=== PATIENT | female | born 1955 | race Caucasian/White ===

== ENCOUNTER → 2017-10-06 | Outpatient (CLI) | payer BC ==
[~2017-10-06] MED LIST: ASPI81EC PO; CRUTCH USE; OXYACE5T PO; VENL150ER PO; [UNRECOGNIZED DRUG - OTHER]
== END | disposition home or self-care (01) ==
LOC: LAB 17:20 → LAB SHORT 17:20
DX: S91.002D Unspecified open wound, left ankle, subsequent encounter (principal)
CPT/HCPCS: 87070; 87075; 87205

== ENCOUNTER 2017-10-12 00:34 | Day surgery (SDC) | payer BC | END 2017-10-12 22:46 | disposition home or self-care (01) | LOC: WOUND 00:34 | PROC: 0HBLXZX Excision of Left Lower Leg Skin, External Approach, Diagnostic (ICD-10-PCS; principal; 2017-10-12) | DX: S91.002A Unspecified open wound, left ankle, initial encounter (principal); I87.2 Venous insufficiency (chronic) (peripheral); F17.210 Nicotine dependence, cigarettes, uncomplicated; I10 Essential (primary) hypertension; J44.9 Chronic obstructive pulmonary disease, unspecified | CPT/HCPCS: G0463 ==

== ENCOUNTER 2017-10-19 09:19 | Day surgery (SDC) | payer BC | END 2017-10-19 22:57 | disposition home or self-care (01) | LOC: WOUND 09:19 | PROC: 0HBLXZZ Excision of Left Lower Leg Skin, External Approach (ICD-10-PCS; principal; 2017-10-19) | PROC: 2W1RX6Z Compression of Left Lower Leg using Pressure Dressing (ICD-10-PCS; principal; 2017-10-19) | DX: S91.002A Unspecified open wound, left ankle, initial encounter (principal); I87.2 Venous insufficiency (chronic) (peripheral); I10 Essential (primary) hypertension; J44.9 Chronic obstructive pulmonary disease, unspecified; F17.210 Nicotine dependence, cigarettes, uncomplicated; C43.9 Malignant melanoma of skin, unspecified; B95.8 Unspecified staphylococcus as the cause of diseases classified elsewhere ==

== ENCOUNTER 2017-10-22 12:30 | Day surgery (SDC) | payer BC | END 2017-10-22 14:06 | disposition home or self-care (01) | LOC: WOUND 12:30 | PROC: 2W1RX6Z Compression of Left Lower Leg using Pressure Dressing (ICD-10-PCS; principal; 2017-10-22) | DX: S91.002A Unspecified open wound, left ankle, initial encounter (principal); I87.2 Venous insufficiency (chronic) (peripheral); J44.9 Chronic obstructive pulmonary disease, unspecified; F17.210 Nicotine dependence, cigarettes, uncomplicated; I10 Essential (primary) hypertension; C43.9 Malignant melanoma of skin, unspecified; B95.8 Unspecified staphylococcus as the cause of diseases classified elsewhere ==

== ENCOUNTER 2017-10-26 13:56 | Day surgery (SDC) | payer BC | END 2017-10-26 15:23 | disposition home or self-care (01) | LOC: WOUND 13:56 | DX: L97.822 Non-pressure chronic ulcer of other part of left lower leg with fat layer exposed (principal); S91.002A Unspecified open wound, left ankle, initial encounter; I87.2 Venous insufficiency (chronic) (peripheral); J44.9 Chronic obstructive pulmonary disease, unspecified; F17.210 Nicotine dependence, cigarettes, uncomplicated; I10 Essential (primary) hypertension; C43.9 Malignant melanoma of skin, unspecified ==

== ENCOUNTER 2017-11-03 07:54 | Day surgery (SDC) | END 2017-11-03 09:01 | disposition home or self-care (01) ==

== ENCOUNTER 2017-11-05 13:57 | Day surgery (SDC) | payer BC | END 2017-11-05 23:03 | disposition home or self-care (01) | LOC: WOUND 13:57 | PROC: 2W1RX6Z Compression of Left Lower Leg using Pressure Dressing (ICD-10-PCS; principal; 2017-11-05) | PROC: 0HBLXZZ Excision of Left Lower Leg Skin, External Approach (ICD-10-PCS; principal; 2017-11-05) | DX: L97.322 Non-pressure chronic ulcer of left ankle with fat layer exposed (principal); I87.2 Venous insufficiency (chronic) (peripheral); J44.9 Chronic obstructive pulmonary disease, unspecified; F17.210 Nicotine dependence, cigarettes, uncomplicated; I10 Essential (primary) hypertension; C43.9 Malignant melanoma of skin, unspecified | CPT/HCPCS: G0463 ==

== ENCOUNTER 2017-11-11 07:52 | Day surgery (SDC) | payer BC | END 2017-11-11 22:54 | disposition home or self-care (01) | LOC: WOUND 07:52 | PROC: 0HBLXZZ Excision of Left Lower Leg Skin, External Approach (ICD-10-PCS; principal; 2017-11-11) | DX: L97.822 Non-pressure chronic ulcer of other part of left lower leg with fat layer exposed (principal); I87.2 Venous insufficiency (chronic) (peripheral); S91.002A Unspecified open wound, left ankle, initial encounter; J44.9 Chronic obstructive pulmonary disease, unspecified; F17.210 Nicotine dependence, cigarettes, uncomplicated; I10 Essential (primary) hypertension; C43.9 Malignant melanoma of skin, unspecified; B95.8 Unspecified staphylococcus as the cause of diseases classified elsewhere | CPT/HCPCS: G0463 ==

== ENCOUNTER 2017-11-16 10:43 | Day surgery (SDC) | payer BC | END 2017-11-16 11:59 | disposition home or self-care (01) | LOC: WOUND 10:43 | PROC: 0HBLXZZ Excision of Left Lower Leg Skin, External Approach (ICD-10-PCS; principal; 2017-11-16) | DX: L97.822 Non-pressure chronic ulcer of other part of left lower leg with fat layer exposed (principal); I87.2 Venous insufficiency (chronic) (peripheral); J44.9 Chronic obstructive pulmonary disease, unspecified; F17.210 Nicotine dependence, cigarettes, uncomplicated; I10 Essential (primary) hypertension; C43.9 Malignant melanoma of skin, unspecified; B95.8 Unspecified staphylococcus as the cause of diseases classified elsewhere ==

== ENCOUNTER 2017-11-23 13:14 | Day surgery (SDC) | payer BC | END 2017-11-23 23:19 | disposition home or self-care (01) | LOC: WOUND 13:14 | PROC: 2W1RX6Z Compression of Left Lower Leg using Pressure Dressing (ICD-10-PCS; principal; 2017-11-23) | DX: L97.822 Non-pressure chronic ulcer of other part of left lower leg with fat layer exposed (principal); I87.2 Venous insufficiency (chronic) (peripheral); J44.9 Chronic obstructive pulmonary disease, unspecified; F17.210 Nicotine dependence, cigarettes, uncomplicated; I10 Essential (primary) hypertension; C43.9 Malignant melanoma of skin, unspecified; S91.002A Unspecified open wound, left ankle, initial encounter | CPT/HCPCS: G0463 ==

== ENCOUNTER 2017-11-30 07:49 | Day surgery (SDC) | payer BC | END 2017-11-30 09:47 | disposition home or self-care (01) | LOC: WOUND 07:49 | PROC: 0HBLXZZ Excision of Left Lower Leg Skin, External Approach (ICD-10-PCS; principal; 2017-11-30) | DX: S91.002A Unspecified open wound, left ankle, initial encounter (principal); I87.2 Venous insufficiency (chronic) (peripheral); S91.002D Unspecified open wound, left ankle, subsequent encounter; F17.210 Nicotine dependence, cigarettes, uncomplicated; I10 Essential (primary) hypertension; C43.9 Malignant melanoma of skin, unspecified; B95.8 Unspecified staphylococcus as the cause of diseases classified elsewhere ==

== ENCOUNTER 2017-12-07 11:00 | Day surgery (SDC) | payer BC | END 2017-12-07 11:31 | disposition home or self-care (01) | LOC: WOUND 11:00 | PROC: 2W1RX6Z Compression of Left Lower Leg using Pressure Dressing (ICD-10-PCS; principal; 2017-12-07) | DX: S91.002A Unspecified open wound, left ankle, initial encounter (principal); I87.2 Venous insufficiency (chronic) (peripheral); J44.9 Chronic obstructive pulmonary disease, unspecified; F17.210 Nicotine dependence, cigarettes, uncomplicated; I10 Essential (primary) hypertension; C43.9 Malignant melanoma of skin, unspecified ==

== ENCOUNTER 2017-12-14 10:43 | Day surgery (SDC) | payer BC | END 2017-12-14 12:12 | disposition home or self-care (01) | LOC: WOUND 10:43 | DX: T84.629A Infection and inflammatory reaction due to internal fixation device of unspecified bone of leg, initial encounter (principal); S91.002A Unspecified open wound, left ankle, initial encounter; B95.8 Unspecified staphylococcus as the cause of diseases classified elsewhere; I87.2 Venous insufficiency (chronic) (peripheral); R60.0 Localized edema; F17.210 Nicotine dependence, cigarettes, uncomplicated; I10 Essential (primary) hypertension; Z86.718 Personal history of other venous thrombosis and embolism; J44.9 Chronic obstructive pulmonary disease, unspecified; C43.9 Malignant melanoma of skin, unspecified | CPT/HCPCS: G0463 ==

== ENCOUNTER 2017-12-21 16:00 | Day surgery (SDC) | payer BC | END 2017-12-21 17:17 | disposition home or self-care (01) | LOC: WOUND 16:00 | DX: T84.629A Infection and inflammatory reaction due to internal fixation device of unspecified bone of leg, initial encounter (principal); L97.322 Non-pressure chronic ulcer of left ankle with fat layer exposed; B95.8 Unspecified staphylococcus as the cause of diseases classified elsewhere; F17.210 Nicotine dependence, cigarettes, uncomplicated; Z86.718 Personal history of other venous thrombosis and embolism; I87.2 Venous insufficiency (chronic) (peripheral); J44.9 Chronic obstructive pulmonary disease, unspecified | CPT/HCPCS: G0463 ==

== ENCOUNTER → 2018-07-03 | Outpatient (CLI) | payer BC | LOC: LAB EV 14:38 → LAB SHORT 14:38 | DX: S91.002A Unspecified open wound, left ankle, initial encounter (principal) | CPT/HCPCS: 87070; 87077; 87186; 87205 ==

== ENCOUNTER 2018-08-24 00:12 | Day surgery (SDC) | payer BC | END 2018-08-24 22:58 | disposition home or self-care (01) | LOC: WOUND 00:12 | DX: L97.323 Non-pressure chronic ulcer of left ankle with necrosis of muscle (principal); I87.2 Venous insufficiency (chronic) (peripheral); I10 Essential (primary) hypertension; Z72.0 Tobacco use; J44.9 Chronic obstructive pulmonary disease, unspecified; Z87.81 Personal history of (healed) traumatic fracture | CPT/HCPCS: G0463 ==

== ENCOUNTER 2018-08-26 00:32 | Day surgery (SDC) | payer BC | END 2018-08-26 12:00 | disposition home or self-care (01) | LOC: WOUND 00:32 | DX: L97.823 Non-pressure chronic ulcer of other part of left lower leg with necrosis of muscle (principal); I87.2 Venous insufficiency (chronic) (peripheral); I10 Essential (primary) hypertension; J44.9 Chronic obstructive pulmonary disease, unspecified; Z87.81 Personal history of (healed) traumatic fracture; Z86.718 Personal history of other venous thrombosis and embolism; Z72.0 Tobacco use ==

== ENCOUNTER 2018-09-02 00:13 | Day surgery (SDC) | payer BC | END 2018-09-02 23:03 | disposition home or self-care (01) | LOC: WOUND 00:13 | DX: L97.823 Non-pressure chronic ulcer of other part of left lower leg with necrosis of muscle (principal); J44.9 Chronic obstructive pulmonary disease, unspecified; I10 Essential (primary) hypertension; I87.2 Venous insufficiency (chronic) (peripheral); Z86.718 Personal history of other venous thrombosis and embolism; Z87.81 Personal history of (healed) traumatic fracture; Z72.0 Tobacco use | CPT/HCPCS: 87070; 87077; 87147; 87186; 87205 ==

== ENCOUNTER 2018-09-09 01:16 | Day surgery (SDC) | payer BC | END 2018-09-09 22:48 | disposition home or self-care (01) | LOC: WOUND 01:16 | DX: I87.2 Venous insufficiency (chronic) (peripheral) (principal); L97.323 Non-pressure chronic ulcer of left ankle with necrosis of muscle; I73.9 Peripheral vascular disease, unspecified; I10 Essential (primary) hypertension; Z87.81 Personal history of (healed) traumatic fracture; Z86.718 Personal history of other venous thrombosis and embolism; Z72.0 Tobacco use ==

== ENCOUNTER 2018-09-16 14:45 | Day surgery (SDC) | payer OTHER | END 2018-09-16 23:58 | disposition home or self-care (01) | LOC: WOUND 14:45 | DX: L97.823 Non-pressure chronic ulcer of other part of left lower leg with necrosis of muscle (principal) ==

== ENCOUNTER 2018-09-23 12:45 | Day surgery (SDC) | payer OTHER | END 2018-09-23 23:36 | disposition home or self-care (01) | LOC: WOUND 12:45 | DX: L97.323 Non-pressure chronic ulcer of left ankle with necrosis of muscle (principal); I87.2 Venous insufficiency (chronic) (peripheral); I10 Essential (primary) hypertension; J44.9 Chronic obstructive pulmonary disease, unspecified; Z86.718 Personal history of other venous thrombosis and embolism; Z87.81 Personal history of (healed) traumatic fracture; Z72.0 Tobacco use ==

== ENCOUNTER 2018-09-30 14:40 | Day surgery (SDC) | payer OTHER | END 2018-09-30 23:48 | disposition home or self-care (01) | LOC: WOUND 14:40 | DX: I87.2 Venous insufficiency (chronic) (peripheral) (principal); L97.822 Non-pressure chronic ulcer of other part of left lower leg with fat layer exposed; I10 Essential (primary) hypertension; J44.9 Chronic obstructive pulmonary disease, unspecified; Z86.718 Personal history of other venous thrombosis and embolism; Z87.81 Personal history of (healed) traumatic fracture; Z72.0 Tobacco use ==

== ENCOUNTER 2018-10-07 15:00 | Day surgery (SDC) | payer BC | END 2018-10-07 22:48 | disposition home or self-care (01) | LOC: WOUND 15:00 | DX: I87.2 Venous insufficiency (chronic) (peripheral) (principal); L97.822 Non-pressure chronic ulcer of other part of left lower leg with fat layer exposed; L97.323 Non-pressure chronic ulcer of left ankle with necrosis of muscle; I10 Essential (primary) hypertension; J44.9 Chronic obstructive pulmonary disease, unspecified; Z86.718 Personal history of other venous thrombosis and embolism; Z87.81 Personal history of (healed) traumatic fracture; Z72.0 Tobacco use ==

== ENCOUNTER 2018-10-14 00:20 | Day surgery (SDC) | payer BC | END 2018-10-14 23:01 | disposition home or self-care (01) | LOC: WOUND 00:20 | DX: L97.822 Non-pressure chronic ulcer of other part of left lower leg with fat layer exposed (principal); L97.323 Non-pressure chronic ulcer of left ankle with necrosis of muscle; I10 Essential (primary) hypertension; I87.2 Venous insufficiency (chronic) (peripheral); Z86.718 Personal history of other venous thrombosis and embolism; Z87.81 Personal history of (healed) traumatic fracture; Z72.0 Tobacco use; Z88.2 Allergy status to sulfonamides ==

== ENCOUNTER 2018-10-21 00:37 | Day surgery (SDC) | payer BC | END 2018-10-21 22:50 | disposition home or self-care (01) | LOC: WOUND 00:37 | DX: L97.822 Non-pressure chronic ulcer of other part of left lower leg with fat layer exposed (principal); I87.2 Venous insufficiency (chronic) (peripheral); I10 Essential (primary) hypertension; Z86.718 Personal history of other venous thrombosis and embolism; Z87.81 Personal history of (healed) traumatic fracture; Z72.0 Tobacco use | CPT/HCPCS: G0463 ==

== ENCOUNTER 2018-10-28 00:56 | Day surgery (SDC) | payer BC | END 2018-10-28 23:22 | disposition home or self-care (01) | LOC: WOUND 00:56 | DX: L97.822 Non-pressure chronic ulcer of other part of left lower leg with fat layer exposed (principal); L97.323 Non-pressure chronic ulcer of left ankle with necrosis of muscle; I87.2 Venous insufficiency (chronic) (peripheral); I73.9 Peripheral vascular disease, unspecified; I10 Essential (primary) hypertension; J44.9 Chronic obstructive pulmonary disease, unspecified; Z86.718 Personal history of other venous thrombosis and embolism; Z87.81 Personal history of (healed) traumatic fracture; Z72.0 Tobacco use | CPT/HCPCS: G0463 ==

== ENCOUNTER 2018-11-04 00:25 | Day surgery (SDC) | payer BC | END 2018-11-04 23:15 | disposition home or self-care (01) | LOC: WOUND 00:25 | DX: L97.822 Non-pressure chronic ulcer of other part of left lower leg with fat layer exposed (principal); L97.323 Non-pressure chronic ulcer of left ankle with necrosis of muscle; I87.2 Venous insufficiency (chronic) (peripheral); I10 Essential (primary) hypertension; D48.5 Neoplasm of uncertain behavior of skin; I73.9 Peripheral vascular disease, unspecified; Z87.81 Personal history of (healed) traumatic fracture; Z72.0 Tobacco use ==

== ENCOUNTER 2018-11-11 14:50 | Day surgery (SDC) | payer BC | END 2018-11-11 22:43 | disposition home or self-care (01) | LOC: WOUND 14:50 | DX: L97.822 Non-pressure chronic ulcer of other part of left lower leg with fat layer exposed (principal); L97.323 Non-pressure chronic ulcer of left ankle with necrosis of muscle; I87.2 Venous insufficiency (chronic) (peripheral); I10 Essential (primary) hypertension; J44.9 Chronic obstructive pulmonary disease, unspecified; D48.5 Neoplasm of uncertain behavior of skin; Z87.81 Personal history of (healed) traumatic fracture; Z86.718 Personal history of other venous thrombosis and embolism | CPT/HCPCS: G0463 ==

== ENCOUNTER 2018-11-18 14:42 | Day surgery (SDC) | payer BC, OTHER | END 2018-11-18 23:26 | disposition home or self-care (01) | LOC: WOUND 14:42 | DX: L97.822 Non-pressure chronic ulcer of other part of left lower leg with fat layer exposed (principal); I87.2 Venous insufficiency (chronic) (peripheral); I10 Essential (primary) hypertension; Z87.81 Personal history of (healed) traumatic fracture; Z86.718 Personal history of other venous thrombosis and embolism; Z72.0 Tobacco use ==

== ENCOUNTER 2018-11-22 13:25 | Day surgery (SDC) | payer BC, OTHER | END 2018-11-22 23:16 | disposition home or self-care (01) | LOC: WOUND 13:25 | DX: L97.822 Non-pressure chronic ulcer of other part of left lower leg with fat layer exposed (principal); I10 Essential (primary) hypertension; J44.9 Chronic obstructive pulmonary disease, unspecified; I87.2 Venous insufficiency (chronic) (peripheral); D48.5 Neoplasm of uncertain behavior of skin; Z86.718 Personal history of other venous thrombosis and embolism; Z87.81 Personal history of (healed) traumatic fracture; Z72.0 Tobacco use ==

== ENCOUNTER 2018-11-25 14:45 | Day surgery (SDC) | payer BC | END 2018-11-25 22:54 | disposition home or self-care (01) | LOC: WOUND 14:45 | DX: L97.822 Non-pressure chronic ulcer of other part of left lower leg with fat layer exposed (principal); L97.323 Non-pressure chronic ulcer of left ankle with necrosis of muscle; I87.2 Venous insufficiency (chronic) (peripheral); I10 Essential (primary) hypertension; Z87.81 Personal history of (healed) traumatic fracture; Z72.0 Tobacco use; Z86.718 Personal history of other venous thrombosis and embolism | CPT/HCPCS: G0463; J3301 ==

== ENCOUNTER 2018-12-02 14:45 | Day surgery (SDC) | payer BC, OTHER | END 2018-12-02 23:09 | disposition home or self-care (01) | LOC: WOUND 14:45 | DX: L97.822 Non-pressure chronic ulcer of other part of left lower leg with fat layer exposed (principal); I10 Essential (primary) hypertension; J44.9 Chronic obstructive pulmonary disease, unspecified; I87.2 Venous insufficiency (chronic) (peripheral); I73.9 Peripheral vascular disease, unspecified; Z86.718 Personal history of other venous thrombosis and embolism; Z87.81 Personal history of (healed) traumatic fracture; Z72.0 Tobacco use | CPT/HCPCS: G0463 ==

== ENCOUNTER 2018-12-16 14:58 | Day surgery (SDC) | payer BC, OTHER | END 2018-12-16 23:00 | disposition home or self-care (01) | LOC: WOUND 14:58 | PROC: 0HDKXZZ Extraction of Right Lower Leg Skin, External Approach (ICD-10-PCS; principal; 2018-12-16) | DX: L97.811 Non-pressure chronic ulcer of other part of right lower leg limited to breakdown of skin (principal); L97.519 Non-pressure chronic ulcer of other part of right foot with unspecified severity; L97.322 Non-pressure chronic ulcer of left ankle with fat layer exposed; I87.2 Venous insufficiency (chronic) (peripheral); I10 Essential (primary) hypertension; J44.9 Chronic obstructive pulmonary disease, unspecified; F17.200 Nicotine dependence, unspecified, uncomplicated; D48.5 Neoplasm of uncertain behavior of skin; Z87.81 Personal history of (healed) traumatic fracture; Z86.718 Personal history of other venous thrombosis and embolism ==

== ENCOUNTER 2018-12-23 00:27 | Day surgery (SDC) | payer BC, OTHER | END 2018-12-23 22:55 | disposition home or self-care (01) | LOC: WOUND 00:27 | DX: L97.323 Non-pressure chronic ulcer of left ankle with necrosis of muscle (principal); I10 Essential (primary) hypertension; J44.9 Chronic obstructive pulmonary disease, unspecified; I87.2 Venous insufficiency (chronic) (peripheral); I73.9 Peripheral vascular disease, unspecified; Z86.718 Personal history of other venous thrombosis and embolism; Z87.81 Personal history of (healed) traumatic fracture | CPT/HCPCS: G0463 ==

== ENCOUNTER 2018-12-30 00:19 | Day surgery (SDC) | payer BC, OTHER | END 2018-12-30 22:53 | disposition home or self-care (01) | LOC: WOUND 00:19 | DX: L97.323 Non-pressure chronic ulcer of left ankle with necrosis of muscle (principal); I10 Essential (primary) hypertension; J44.9 Chronic obstructive pulmonary disease, unspecified; I73.9 Peripheral vascular disease, unspecified; I87.2 Venous insufficiency (chronic) (peripheral); Z87.81 Personal history of (healed) traumatic fracture; Z72.0 Tobacco use | CPT/HCPCS: G0463 ==

== ENCOUNTER 2019-01-04 07:55 | Day surgery (SDC) | payer BC, OTHER ==
[~2019-01-04] VITALS: Ht 170.2 cm; Wt 84.0 kg
[2019-01-04] MEDS ORDERED: Prinivil10 MG PO (09:27)
[2019-01-04] MEDS ORDERED: VENL150ER PO (09:27)
[2019-01-04] MEDS ORDERED: CALCIUM 600 +1 EA11 PO (09:27)
[2019-01-04] MEDS ORDERED: MAGNESIUM CITR100 MG PO (09:28)
== END 2019-01-04 23:00 | disposition home or self-care (01) ==
LOC: MHTC 07:55
DX: I87.2 Venous insufficiency (chronic) (peripheral) (principal); I83.023 Varicose veins of left lower extremity with ulcer of ankle; L97.329 Non-pressure chronic ulcer of left ankle with unspecified severity
CPT/HCPCS: 36466; 99152; J3010; J7040

== ENCOUNTER 2019-01-13 15:10 | Day surgery (SDC) | payer BC, OTHER ==
[~2019-01-13 15:10] MED LIST changes: +CALCIUM 600 +1 EA11 PO; +MAGNESIUM CITR100 MG PO; +Prinivil10 MG PO
== END 2019-01-13 23:04 | disposition home or self-care (01) ==
LOC: WOUND 15:10
DX: L97.323 Non-pressure chronic ulcer of left ankle with necrosis of muscle (principal); I87.2 Venous insufficiency (chronic) (peripheral); I10 Essential (primary) hypertension; J44.9 Chronic obstructive pulmonary disease, unspecified; Z87.81 Personal history of (healed) traumatic fracture; Z86.718 Personal history of other venous thrombosis and embolism; Z98.890 Other specified postprocedural states
CPT/HCPCS: G0463

== ENCOUNTER 2019-01-20 14:35 | Day surgery (SDC) | payer BC, OTHER | END 2019-01-20 23:28 | disposition home or self-care (01) | LOC: WOUND 14:35 | DX: L97.323 Non-pressure chronic ulcer of left ankle with necrosis of muscle (principal); I87.2 Venous insufficiency (chronic) (peripheral); I10 Essential (primary) hypertension; D48.5 Neoplasm of uncertain behavior of skin; Z87.81 Personal history of (healed) traumatic fracture; Z86.718 Personal history of other venous thrombosis and embolism | CPT/HCPCS: G0463 ==

== ENCOUNTER 2019-01-27 14:51 | Day surgery (SDC) | payer BC, OTHER | END 2019-01-27 23:35 | disposition home or self-care (01) | LOC: WOUND 14:51 | DX: L97.323 Non-pressure chronic ulcer of left ankle with necrosis of muscle (principal); I87.2 Venous insufficiency (chronic) (peripheral); I10 Essential (primary) hypertension; Z87.81 Personal history of (healed) traumatic fracture; Z72.0 Tobacco use | CPT/HCPCS: G0463 ==

== ENCOUNTER 2019-02-10 00:34 | Day surgery (SDC) | payer BC, OTHER | END 2019-02-10 23:30 | disposition home or self-care (01) | LOC: WOUND 00:34 | DX: L97.822 Non-pressure chronic ulcer of other part of left lower leg with fat layer exposed (principal); L97.323 Non-pressure chronic ulcer of left ankle with necrosis of muscle; I87.2 Venous insufficiency (chronic) (peripheral); I10 Essential (primary) hypertension; J44.9 Chronic obstructive pulmonary disease, unspecified; Z87.891 Personal history of nicotine dependence; Z86.718 Personal history of other venous thrombosis and embolism | CPT/HCPCS: 87071; 87075; 87077; 87102; 87186; 87205 ==

== ENCOUNTER 2019-02-17 01:20 | Day surgery (SDC) | payer BC, OTHER | END 2019-02-17 22:46 | disposition home or self-care (01) | LOC: WOUND 01:20 | DX: L97.323 Non-pressure chronic ulcer of left ankle with necrosis of muscle (principal); L97.822 Non-pressure chronic ulcer of other part of left lower leg with fat layer exposed; I73.9 Peripheral vascular disease, unspecified; I87.2 Venous insufficiency (chronic) (peripheral); I10 Essential (primary) hypertension; Z86.718 Personal history of other venous thrombosis and embolism; Z87.81 Personal history of (healed) traumatic fracture; Z72.0 Tobacco use | CPT/HCPCS: G0463 ==

== ENCOUNTER 2019-02-24 00:45 | Day surgery (SDC) | payer BC, OTHER | END 2019-02-24 23:12 | disposition home or self-care (01) | LOC: WOUND 00:45 | DX: L97.323 Non-pressure chronic ulcer of left ankle with necrosis of muscle (principal); L97.822 Non-pressure chronic ulcer of other part of left lower leg with fat layer exposed; I87.2 Venous insufficiency (chronic) (peripheral); I10 Essential (primary) hypertension; Z87.81 Personal history of (healed) traumatic fracture; Z72.0 Tobacco use | CPT/HCPCS: G0463 ==

== ENCOUNTER 2019-03-03 00:14 | Day surgery (SDC) | payer BC, OTHER | END 2019-03-03 23:53 | disposition home or self-care (01) | LOC: WOUND 00:14 | DX: L97.321 Non-pressure chronic ulcer of left ankle limited to breakdown of skin (principal); I87.2 Venous insufficiency (chronic) (peripheral); I10 Essential (primary) hypertension; Z87.81 Personal history of (healed) traumatic fracture; Z72.0 Tobacco use ==

== ENCOUNTER 2019-03-10 00:44 | Day surgery (SDC) | payer BC, OTHER | END 2019-03-10 23:17 | disposition home or self-care (01) | LOC: WOUND 00:44 | DX: L97.321 Non-pressure chronic ulcer of left ankle limited to breakdown of skin (principal); I10 Essential (primary) hypertension; I87.2 Venous insufficiency (chronic) (peripheral); Z87.81 Personal history of (healed) traumatic fracture; Z72.0 Tobacco use ==

== ENCOUNTER 2019-03-14 08:02 | Day surgery (SDC) | payer BC, OTHER | END 2019-03-14 22:54 | disposition home or self-care (01) | LOC: WOUND 08:02 | DX: L97.323 Non-pressure chronic ulcer of left ankle with necrosis of muscle (principal); I10 Essential (primary) hypertension; I87.2 Venous insufficiency (chronic) (peripheral); Z87.81 Personal history of (healed) traumatic fracture; Z72.0 Tobacco use ==

== ENCOUNTER 2019-03-17 13:04 | Day surgery (SDC) | payer BC, OTHER | END 2019-03-17 22:57 | disposition home or self-care (01) | LOC: WOUND 13:04 | DX: L97.323 Non-pressure chronic ulcer of left ankle with necrosis of muscle (principal); I10 Essential (primary) hypertension; I87.2 Venous insufficiency (chronic) (peripheral); Z87.81 Personal history of (healed) traumatic fracture; Z72.0 Tobacco use | CPT/HCPCS: 87070; 87075; 87077; 87147; 87186; 87205; G0463 ==

== ENCOUNTER 2019-03-24 00:37 | Day surgery (SDC) | payer BC, OTHER | END 2019-03-24 23:39 | disposition home or self-care (01) | LOC: WOUND 00:37 | DX: I87.2 Venous insufficiency (chronic) (peripheral) (principal); L97.323 Non-pressure chronic ulcer of left ankle with necrosis of muscle; J44.9 Chronic obstructive pulmonary disease, unspecified; I10 Essential (primary) hypertension; F17.200 Nicotine dependence, unspecified, uncomplicated; Z87.81 Personal history of (healed) traumatic fracture ==

== ENCOUNTER 2019-04-04 00:33 | Day surgery (SDC) | payer BC, OTHER | END 2019-04-04 22:49 | disposition home or self-care (01) | LOC: WOUND 00:33 | DX: L97.323 Non-pressure chronic ulcer of left ankle with necrosis of muscle (principal); I10 Essential (primary) hypertension; I87.2 Venous insufficiency (chronic) (peripheral); F17.200 Nicotine dependence, unspecified, uncomplicated; J44.9 Chronic obstructive pulmonary disease, unspecified; Z87.81 Personal history of (healed) traumatic fracture; Z79.82 Long term (current) use of aspirin; Z79.899 Other long term (current) drug therapy ==

== ENCOUNTER 2019-04-14 12:59 | Day surgery (SDC) | payer BC, OTHER | END 2019-04-14 23:17 | disposition home or self-care (01) | LOC: WOUND 12:59 | DX: L97.823 Non-pressure chronic ulcer of other part of left lower leg with necrosis of muscle (principal); I87.2 Venous insufficiency (chronic) (peripheral); J44.9 Chronic obstructive pulmonary disease, unspecified; I10 Essential (primary) hypertension; Z88.1 Allergy status to other antibiotic agents; Z88.2 Allergy status to sulfonamides; Z79.82 Long term (current) use of aspirin; Z79.899 Other long term (current) drug therapy; Z86.718 Personal history of other venous thrombosis and embolism ==

== ENCOUNTER 2019-04-28 12:59 | Day surgery (SDC) | payer BC, OTHER | END 2019-04-28 23:19 | disposition home or self-care (01) | LOC: WOUND 12:59 | DX: L97.823 Non-pressure chronic ulcer of other part of left lower leg with necrosis of muscle (principal); I73.9 Peripheral vascular disease, unspecified; I87.2 Venous insufficiency (chronic) (peripheral); J44.9 Chronic obstructive pulmonary disease, unspecified; I10 Essential (primary) hypertension; Z88.1 Allergy status to other antibiotic agents; Z88.2 Allergy status to sulfonamides; Z79.82 Long term (current) use of aspirin; Z79.899 Other long term (current) drug therapy ==

== ENCOUNTER 2019-05-12 13:01 | Day surgery (SDC) | payer BC, OTHER | END 2019-05-12 23:10 | disposition home or self-care (01) | LOC: WOUND 13:01 | DX: L97.323 Non-pressure chronic ulcer of left ankle with necrosis of muscle (principal); I87.2 Venous insufficiency (chronic) (peripheral); F17.200 Nicotine dependence, unspecified, uncomplicated; I10 Essential (primary) hypertension; Z87.81 Personal history of (healed) traumatic fracture; J44.9 Chronic obstructive pulmonary disease, unspecified; Z79.82 Long term (current) use of aspirin; Z79.899 Other long term (current) drug therapy ==

== ENCOUNTER 2019-05-16 08:45 | Day surgery (SDC) | payer BC, OTHER | END 2019-05-16 22:45 | disposition home or self-care (01) | LOC: WOUND 08:45 | DX: L97.323 Non-pressure chronic ulcer of left ankle with necrosis of muscle (principal); I87.2 Venous insufficiency (chronic) (peripheral); I10 Essential (primary) hypertension; J44.9 Chronic obstructive pulmonary disease, unspecified; Z86.718 Personal history of other venous thrombosis and embolism; Z79.82 Long term (current) use of aspirin; Z79.899 Other long term (current) drug therapy; Z88.1 Allergy status to other antibiotic agents; Z88.2 Allergy status to sulfonamides ==

== ENCOUNTER 2019-05-18 08:17 | Day surgery (SDC) | payer BC, OTHER | END 2019-05-18 23:59 | disposition home or self-care (01) | LOC: WOUND 08:17 | DX: L97.323 Non-pressure chronic ulcer of left ankle with necrosis of muscle (principal); J44.9 Chronic obstructive pulmonary disease, unspecified; I10 Essential (primary) hypertension; I87.2 Venous insufficiency (chronic) (peripheral); F17.200 Nicotine dependence, unspecified, uncomplicated; Z87.81 Personal history of (healed) traumatic fracture; Z79.82 Long term (current) use of aspirin; Z79.899 Other long term (current) drug therapy ==

== ENCOUNTER 2019-05-20 14:47 | Day surgery (SDC) | payer BC, OTHER | END 2019-05-21 22:48 | disposition home or self-care (01) | LOC: WOUND 14:47 | DX: I96 Gangrene, not elsewhere classified (principal); L97.323 Non-pressure chronic ulcer of left ankle with necrosis of muscle; I87.2 Venous insufficiency (chronic) (peripheral); J44.9 Chronic obstructive pulmonary disease, unspecified; I10 Essential (primary) hypertension; Z86.718 Personal history of other venous thrombosis and embolism; Z87.81 Personal history of (healed) traumatic fracture; Z79.82 Long term (current) use of aspirin; Z79.899 Other long term (current) drug therapy; Z88.1 Allergy status to other antibiotic agents; Z88.2 Allergy status to sulfonamides ==

== ENCOUNTER 2019-05-23 08:37 | Day surgery (SDC) | payer BC, OTHER | END 2019-05-23 22:49 | disposition home or self-care (01) | LOC: WOUND 08:37 | DX: L97.323 Non-pressure chronic ulcer of left ankle with necrosis of muscle (principal); I87.2 Venous insufficiency (chronic) (peripheral); J44.9 Chronic obstructive pulmonary disease, unspecified; I10 Essential (primary) hypertension; Z86.718 Personal history of other venous thrombosis and embolism; Z87.81 Personal history of (healed) traumatic fracture; Z79.82 Long term (current) use of aspirin; Z79.899 Other long term (current) drug therapy; Z88.1 Allergy status to other antibiotic agents; Z88.2 Allergy status to sulfonamides ==

== ENCOUNTER 2019-05-25 08:03 | Day surgery (SDC) | payer BC, OTHER | END 2019-05-25 22:50 | disposition home or self-care (01) | LOC: WOUND 08:03 | DX: L97.323 Non-pressure chronic ulcer of left ankle with necrosis of muscle (principal); I10 Essential (primary) hypertension; I87.2 Venous insufficiency (chronic) (peripheral); F17.200 Nicotine dependence, unspecified, uncomplicated; J44.9 Chronic obstructive pulmonary disease, unspecified; Z87.81 Personal history of (healed) traumatic fracture; Z79.82 Long term (current) use of aspirin; Z79.899 Other long term (current) drug therapy ==

== ENCOUNTER 2019-05-27 11:00 | Day surgery (SDC) | payer BC, OTHER | END 2019-05-27 23:53 | disposition home or self-care (01) | LOC: WOUND 11:00 | DX: L97.323 Non-pressure chronic ulcer of left ankle with necrosis of muscle (principal); I87.2 Venous insufficiency (chronic) (peripheral); I10 Essential (primary) hypertension; J44.9 Chronic obstructive pulmonary disease, unspecified; F17.200 Nicotine dependence, unspecified, uncomplicated; Z87.81 Personal history of (healed) traumatic fracture; Z79.82 Long term (current) use of aspirin; Z79.899 Other long term (current) drug therapy ==

== ENCOUNTER 2019-05-30 15:02 | Day surgery (SDC) | payer BC, OTHER | END 2019-05-30 22:57 | disposition home or self-care (01) | LOC: WOUND 15:02 | DX: L97.323 Non-pressure chronic ulcer of left ankle with necrosis of muscle (principal); I87.2 Venous insufficiency (chronic) (peripheral); F17.200 Nicotine dependence, unspecified, uncomplicated; I10 Essential (primary) hypertension; J44.9 Chronic obstructive pulmonary disease, unspecified; Z87.81 Personal history of (healed) traumatic fracture; Z79.899 Other long term (current) drug therapy; Z79.82 Long term (current) use of aspirin ==

== ENCOUNTER 2019-05-31 11:50 | Day surgery (SDC) | payer BC, OTHER | END 2019-05-31 12:50 | disposition home or self-care (01) | LOC: WOUND 11:50 | DX: L97.323 Non-pressure chronic ulcer of left ankle with necrosis of muscle (principal); I87.2 Venous insufficiency (chronic) (peripheral); F17.200 Nicotine dependence, unspecified, uncomplicated; I10 Essential (primary) hypertension; J44.9 Chronic obstructive pulmonary disease, unspecified; Z87.81 Personal history of (healed) traumatic fracture; Z79.82 Long term (current) use of aspirin; Z79.899 Other long term (current) drug therapy ==

== ENCOUNTER 2019-06-03 14:52 | Day surgery (SDC) | payer BC, OTHER | END 2019-06-03 23:02 | disposition home or self-care (01) | LOC: WOUND 14:52 | DX: L97.323 Non-pressure chronic ulcer of left ankle with necrosis of muscle (principal); I87.2 Venous insufficiency (chronic) (peripheral); J44.9 Chronic obstructive pulmonary disease, unspecified; I10 Essential (primary) hypertension; Z87.81 Personal history of (healed) traumatic fracture; Z79.82 Long term (current) use of aspirin; Z79.899 Other long term (current) drug therapy; Z88.1 Allergy status to other antibiotic agents; Z88.2 Allergy status to sulfonamides ==

== ENCOUNTER 2019-06-10 01:54 | Day surgery (SDC) | payer BC, OTHER | END 2019-06-10 23:31 | disposition home or self-care (01) | LOC: WOUND 01:54 | DX: L97.323 Non-pressure chronic ulcer of left ankle with necrosis of muscle (principal); I87.2 Venous insufficiency (chronic) (peripheral); I73.9 Peripheral vascular disease, unspecified; J44.9 Chronic obstructive pulmonary disease, unspecified; I10 Essential (primary) hypertension; Z87.81 Personal history of (healed) traumatic fracture; Z79.82 Long term (current) use of aspirin; Z79.899 Other long term (current) drug therapy; Z86.718 Personal history of other venous thrombosis and embolism; Z88.1 Allergy status to other antibiotic agents; Z88.2 Allergy status to sulfonamides ==

== ENCOUNTER 2019-06-13 14:56 | Day surgery (SDC) | payer BC, OTHER | END 2019-06-13 22:43 | disposition home or self-care (01) | LOC: WOUND 14:56 | DX: L97.323 Non-pressure chronic ulcer of left ankle with necrosis of muscle (principal); I87.2 Venous insufficiency (chronic) (peripheral); I73.9 Peripheral vascular disease, unspecified; J44.9 Chronic obstructive pulmonary disease, unspecified; I10 Essential (primary) hypertension; Z87.81 Personal history of (healed) traumatic fracture; Z79.82 Long term (current) use of aspirin; Z79.899 Other long term (current) drug therapy; Z86.718 Personal history of other venous thrombosis and embolism; Z88.1 Allergy status to other antibiotic agents; Z88.2 Allergy status to sulfonamides ==

== ENCOUNTER 2019-06-15 10:20 | Day surgery (SDC) | payer BC, OTHER | END 2019-06-15 22:48 | disposition home or self-care (01) | LOC: WOUND 10:20 | DX: I96 Gangrene, not elsewhere classified (principal); L97.822 Non-pressure chronic ulcer of other part of left lower leg with fat layer exposed; I87.2 Venous insufficiency (chronic) (peripheral); I10 Essential (primary) hypertension; J44.9 Chronic obstructive pulmonary disease, unspecified; Z86.718 Personal history of other venous thrombosis and embolism; Z88.2 Allergy status to sulfonamides; Z88.1 Allergy status to other antibiotic agents; Z79.82 Long term (current) use of aspirin; Z79.899 Other long term (current) drug therapy ==

== ENCOUNTER 2019-06-17 14:54 | Day surgery (SDC) | payer BC, OTHER | END 2019-06-17 23:27 | disposition home or self-care (01) | LOC: WOUND 14:54 | DX: I96 Gangrene, not elsewhere classified (principal); L97.822 Non-pressure chronic ulcer of other part of left lower leg with fat layer exposed; I87.2 Venous insufficiency (chronic) (peripheral); I10 Essential (primary) hypertension; J44.9 Chronic obstructive pulmonary disease, unspecified; Z86.718 Personal history of other venous thrombosis and embolism; Z88.2 Allergy status to sulfonamides; Z88.1 Allergy status to other antibiotic agents; Z79.82 Long term (current) use of aspirin; Z79.899 Other long term (current) drug therapy; Z87.81 Personal history of (healed) traumatic fracture ==

== ENCOUNTER 2019-06-20 00:21 | Day surgery (SDC) | payer BC, OTHER | END 2019-06-20 22:43 | disposition home or self-care (01) | LOC: WOUND 00:21 | DX: I96 Gangrene, not elsewhere classified (principal); L97.822 Non-pressure chronic ulcer of other part of left lower leg with fat layer exposed; I87.2 Venous insufficiency (chronic) (peripheral); I10 Essential (primary) hypertension; J44.9 Chronic obstructive pulmonary disease, unspecified; Z86.718 Personal history of other venous thrombosis and embolism; Z88.2 Allergy status to sulfonamides; Z88.1 Allergy status to other antibiotic agents; Z79.82 Long term (current) use of aspirin; Z79.899 Other long term (current) drug therapy; Z87.81 Personal history of (healed) traumatic fracture ==

== ENCOUNTER 2019-06-22 00:37 | Day surgery (SDC) | payer BC, OTHER | END 2019-06-22 22:48 | disposition home or self-care (01) | LOC: WOUND 00:37 | DX: L97.323 Non-pressure chronic ulcer of left ankle with necrosis of muscle (principal); I87.2 Venous insufficiency (chronic) (peripheral); F17.200 Nicotine dependence, unspecified, uncomplicated; I10 Essential (primary) hypertension; J44.9 Chronic obstructive pulmonary disease, unspecified; Z87.81 Personal history of (healed) traumatic fracture; Z79.82 Long term (current) use of aspirin; Z79.899 Other long term (current) drug therapy ==

== ENCOUNTER 2019-06-24 01:05 | Day surgery (SDC) | payer BC, OTHER | END 2019-06-24 23:08 | disposition home or self-care (01) | LOC: WOUND 01:05 | DX: L97.323 Non-pressure chronic ulcer of left ankle with necrosis of muscle (principal); I87.2 Venous insufficiency (chronic) (peripheral); Z87.81 Personal history of (healed) traumatic fracture; F17.200 Nicotine dependence, unspecified, uncomplicated; I10 Essential (primary) hypertension; J44.9 Chronic obstructive pulmonary disease, unspecified ==

== ENCOUNTER 2019-06-29 00:30 | Day surgery (SDC) | payer BC, OTHER | END 2019-06-29 22:36 | disposition home or self-care (01) | LOC: WOUND 00:30 | DX: L97.323 Non-pressure chronic ulcer of left ankle with necrosis of muscle (principal); I87.2 Venous insufficiency (chronic) (peripheral); I10 Essential (primary) hypertension; F17.200 Nicotine dependence, unspecified, uncomplicated; J44.9 Chronic obstructive pulmonary disease, unspecified; Z87.81 Personal history of (healed) traumatic fracture; Z79.82 Long term (current) use of aspirin; Z79.899 Other long term (current) drug therapy ==

== ENCOUNTER → 2019-06-29 | Outpatient (CLI) | payer BC, OTHER | END | disposition home or self-care (01) | LOC: LAB 17:45 → LAB SHORT 17:45 | DX: N39.0 Urinary tract infection, site not specified (principal) | CPT/HCPCS: 87086 ==

== ENCOUNTER 2019-07-01 00:53 | Day surgery (SDC) | payer BC, OTHER | END 2019-07-01 23:05 | disposition home or self-care (01) | LOC: WOUND 00:53 | DX: L97.323 Non-pressure chronic ulcer of left ankle with necrosis of muscle (principal); J44.9 Chronic obstructive pulmonary disease, unspecified; I87.2 Venous insufficiency (chronic) (peripheral); F17.200 Nicotine dependence, unspecified, uncomplicated; I10 Essential (primary) hypertension; Z79.82 Long term (current) use of aspirin; Z87.81 Personal history of (healed) traumatic fracture; Z79.899 Other long term (current) drug therapy ==

== ENCOUNTER 2019-07-04 00:22 | Day surgery (SDC) | payer BC, OTHER | END 2019-07-04 23:12 | disposition home or self-care (01) | LOC: WOUND 00:22 | DX: L97.323 Non-pressure chronic ulcer of left ankle with necrosis of muscle (principal); I87.2 Venous insufficiency (chronic) (peripheral); F17.200 Nicotine dependence, unspecified, uncomplicated; I10 Essential (primary) hypertension; J44.9 Chronic obstructive pulmonary disease, unspecified; Z87.81 Personal history of (healed) traumatic fracture; Z79.82 Long term (current) use of aspirin; Z79.899 Other long term (current) drug therapy ==

== ENCOUNTER 2019-07-06 00:18 | Day surgery (SDC) | payer BC, OTHER | END 2019-07-06 23:14 | disposition home or self-care (01) | LOC: WOUND 00:18 | DX: L97.323 Non-pressure chronic ulcer of left ankle with necrosis of muscle (principal); F17.200 Nicotine dependence, unspecified, uncomplicated; I10 Essential (primary) hypertension; J44.9 Chronic obstructive pulmonary disease, unspecified; I87.2 Venous insufficiency (chronic) (peripheral); Z87.81 Personal history of (healed) traumatic fracture; Z79.82 Long term (current) use of aspirin; Z79.899 Other long term (current) drug therapy ==

== ENCOUNTER 2019-07-08 01:13 | Day surgery (SDC) | payer BC, OTHER | END 2019-07-08 23:22 | disposition home or self-care (01) | LOC: WOUND 01:13 | DX: L97.323 Non-pressure chronic ulcer of left ankle with necrosis of muscle (principal); J44.9 Chronic obstructive pulmonary disease, unspecified; I87.2 Venous insufficiency (chronic) (peripheral); F17.200 Nicotine dependence, unspecified, uncomplicated; I10 Essential (primary) hypertension; Z87.81 Personal history of (healed) traumatic fracture; Z79.899 Other long term (current) drug therapy; Z79.82 Long term (current) use of aspirin ==

== ENCOUNTER 2019-07-11 00:08 | Day surgery (SDC) | payer BC, OTHER | END 2019-07-11 22:46 | disposition home or self-care (01) | LOC: WOUND 00:08 | DX: L97.323 Non-pressure chronic ulcer of left ankle with necrosis of muscle (principal); I87.2 Venous insufficiency (chronic) (peripheral); J44.9 Chronic obstructive pulmonary disease, unspecified; F17.200 Nicotine dependence, unspecified, uncomplicated; I10 Essential (primary) hypertension; Z87.81 Personal history of (healed) traumatic fracture; Z79.82 Long term (current) use of aspirin; Z79.899 Other long term (current) drug therapy ==

== ENCOUNTER 2019-07-13 00:18 | Day surgery (SDC) | payer BC, OTHER | END 2019-07-13 23:11 | disposition home or self-care (01) | LOC: WOUND 00:18 | DX: L97.323 Non-pressure chronic ulcer of left ankle with necrosis of muscle (principal); I87.2 Venous insufficiency (chronic) (peripheral); I10 Essential (primary) hypertension; J44.9 Chronic obstructive pulmonary disease, unspecified; F17.200 Nicotine dependence, unspecified, uncomplicated; Z79.82 Long term (current) use of aspirin; Z87.81 Personal history of (healed) traumatic fracture; Z79.899 Other long term (current) drug therapy ==

== ENCOUNTER 2019-07-15 02:28 | Day surgery (SDC) | payer BC, OTHER | END 2019-07-15 23:52 | disposition home or self-care (01) | LOC: WOUND 02:28 | DX: L97.323 Non-pressure chronic ulcer of left ankle with necrosis of muscle (principal); I87.2 Venous insufficiency (chronic) (peripheral); F17.200 Nicotine dependence, unspecified, uncomplicated; I10 Essential (primary) hypertension; J44.9 Chronic obstructive pulmonary disease, unspecified; Z87.81 Personal history of (healed) traumatic fracture; Z79.82 Long term (current) use of aspirin; Z79.899 Other long term (current) drug therapy ==

== ENCOUNTER 2019-07-18 00:21 | Day surgery (SDC) | payer BC, OTHER | END 2019-07-18 23:17 | disposition home or self-care (01) | LOC: WOUND 00:21 | DX: L97.323 Non-pressure chronic ulcer of left ankle with necrosis of muscle (principal); J44.9 Chronic obstructive pulmonary disease, unspecified; I87.2 Venous insufficiency (chronic) (peripheral); F17.200 Nicotine dependence, unspecified, uncomplicated; I10 Essential (primary) hypertension; Z87.81 Personal history of (healed) traumatic fracture; Z79.82 Long term (current) use of aspirin; Z79.899 Other long term (current) drug therapy ==

== ENCOUNTER 2019-07-20 00:18 | Day surgery (SDC) | payer BC, OTHER | END 2019-07-20 22:57 | disposition home or self-care (01) | LOC: WOUND 00:18 | DX: L97.323 Non-pressure chronic ulcer of left ankle with necrosis of muscle (principal); I87.2 Venous insufficiency (chronic) (peripheral); I10 Essential (primary) hypertension; J44.9 Chronic obstructive pulmonary disease, unspecified; F17.210 Nicotine dependence, cigarettes, uncomplicated; Z87.81 Personal history of (healed) traumatic fracture; Z79.82 Long term (current) use of aspirin; Z79.899 Other long term (current) drug therapy | CPT/HCPCS: Q4133 ==

== ENCOUNTER → 2019-07-25 | Day surgery (SDC) | payer BC, OTHER | LOC: WOUND | DX: L97.323 Non-pressure chronic ulcer of left ankle with necrosis of muscle (principal); I87.2 Venous insufficiency (chronic) (peripheral); F17.200 Nicotine dependence, unspecified, uncomplicated; I10 Essential (primary) hypertension; J44.9 Chronic obstructive pulmonary disease, unspecified; Z87.81 Personal history of (healed) traumatic fracture; Z79.82 Long term (current) use of aspirin; Z79.899 Other long term (current) drug therapy ==

== ENCOUNTER → 2019-07-27 | Day surgery (SDC) | payer BC, OTHER | LOC: WOUND 00:13 | DX: L97.323 Non-pressure chronic ulcer of left ankle with necrosis of muscle (principal); I87.2 Venous insufficiency (chronic) (peripheral); I10 Essential (primary) hypertension; J44.9 Chronic obstructive pulmonary disease, unspecified; Z87.81 Personal history of (healed) traumatic fracture; Z98.890 Other specified postprocedural states | CPT/HCPCS: Q4196 ==

== ENCOUNTER 2019-08-03 00:34 | Day surgery (SDC) | payer BC, OTHER | END 2019-08-03 22:54 | disposition home or self-care (01) | LOC: WOUND 00:34 | DX: L97.323 Non-pressure chronic ulcer of left ankle with necrosis of muscle (principal); I87.2 Venous insufficiency (chronic) (peripheral); F17.200 Nicotine dependence, unspecified, uncomplicated; J44.9 Chronic obstructive pulmonary disease, unspecified; I10 Essential (primary) hypertension; Z87.81 Personal history of (healed) traumatic fracture; Z79.899 Other long term (current) drug therapy; Z79.82 Long term (current) use of aspirin | CPT/HCPCS: Q4133 ==

== ENCOUNTER 2019-08-10 03:15 | Day surgery (SDC) | payer BC, OTHER | END 2019-08-10 22:56 | disposition home or self-care (01) | LOC: WOUND 03:15 | DX: L97.323 Non-pressure chronic ulcer of left ankle with necrosis of muscle (principal); I87.2 Venous insufficiency (chronic) (peripheral); I10 Essential (primary) hypertension; J44.9 Chronic obstructive pulmonary disease, unspecified; F17.200 Nicotine dependence, unspecified, uncomplicated; Z87.81 Personal history of (healed) traumatic fracture; Z79.82 Long term (current) use of aspirin; Z79.899 Other long term (current) drug therapy | CPT/HCPCS: Q4133 ==

== ENCOUNTER 2019-08-17 | Day surgery (SDC) | payer BC, OTHER | END 2019-09-05 22:41 | disposition home or self-care (01) | LOC: WOUND | DX: L97.323 Non-pressure chronic ulcer of left ankle with necrosis of muscle (principal); I87.2 Venous insufficiency (chronic) (peripheral); F17.200 Nicotine dependence, unspecified, uncomplicated; I10 Essential (primary) hypertension; J44.9 Chronic obstructive pulmonary disease, unspecified; Z87.81 Personal history of (healed) traumatic fracture; Z79.899 Other long term (current) drug therapy | CPT/HCPCS: Q4133 ==

== ENCOUNTER 2019-08-24 00:35 | Day surgery (SDC) | payer BC, OTHER | END 2019-08-24 23:15 | disposition home or self-care (01) | LOC: WOUND 00:35 | DX: L97.822 Non-pressure chronic ulcer of other part of left lower leg with fat layer exposed (principal); I87.2 Venous insufficiency (chronic) (peripheral); I10 Essential (primary) hypertension; J44.9 Chronic obstructive pulmonary disease, unspecified; Z86.718 Personal history of other venous thrombosis and embolism; Z87.891 Personal history of nicotine dependence; Z87.81 Personal history of (healed) traumatic fracture ==

== ENCOUNTER 2019-08-31 00:24 | Day surgery (SDC) | payer BC, OTHER | END 2019-08-31 22:46 | disposition home or self-care (01) | LOC: WOUND 00:24 | DX: L97.323 Non-pressure chronic ulcer of left ankle with necrosis of muscle (principal); I87.2 Venous insufficiency (chronic) (peripheral); I10 Essential (primary) hypertension; F17.200 Nicotine dependence, unspecified, uncomplicated; Z87.81 Personal history of (healed) traumatic fracture; Z79.82 Long term (current) use of aspirin; Z79.899 Other long term (current) drug therapy ==

== ENCOUNTER 2019-09-08 00:12 | Day surgery (SDC) | payer BC, OTHER | END 2019-09-08 23:53 | disposition home or self-care (01) | LOC: WOUND 00:12 | DX: L97.323 Non-pressure chronic ulcer of left ankle with necrosis of muscle (principal); I87.2 Venous insufficiency (chronic) (peripheral); I10 Essential (primary) hypertension; J44.9 Chronic obstructive pulmonary disease, unspecified; F17.210 Nicotine dependence, cigarettes, uncomplicated; Z79.82 Long term (current) use of aspirin; Z79.899 Other long term (current) drug therapy; Z86.718 Personal history of other venous thrombosis and embolism; Z87.81 Personal history of (healed) traumatic fracture ==

== ENCOUNTER 2019-09-22 00:06 | Day surgery (SDC) | payer BC, OTHER | END 2019-09-22 22:54 | disposition home or self-care (01) | LOC: WOUND 00:06 | DX: L97.323 Non-pressure chronic ulcer of left ankle with necrosis of muscle (principal); I87.2 Venous insufficiency (chronic) (peripheral); F17.200 Nicotine dependence, unspecified, uncomplicated; I10 Essential (primary) hypertension; Z87.81 Personal history of (healed) traumatic fracture; J44.9 Chronic obstructive pulmonary disease, unspecified; Z79.82 Long term (current) use of aspirin; Z79.899 Other long term (current) drug therapy ==

== ENCOUNTER 2019-09-29 00:14 | Day surgery (SDC) | payer BC, OTHER | END 2019-09-29 22:49 | disposition home or self-care (01) | LOC: WOUND 00:14 | DX: L97.323 Non-pressure chronic ulcer of left ankle with necrosis of muscle (principal); I87.2 Venous insufficiency (chronic) (peripheral); F17.200 Nicotine dependence, unspecified, uncomplicated; I10 Essential (primary) hypertension; J44.9 Chronic obstructive pulmonary disease, unspecified; Z79.82 Long term (current) use of aspirin; Z79.899 Other long term (current) drug therapy; Z87.81 Personal history of (healed) traumatic fracture ==

== ENCOUNTER 2019-10-06 00:07 | Day surgery (SDC) | payer BC, OTHER | END 2019-10-06 22:45 | disposition home or self-care (01) | LOC: WOUND 00:07 | DX: L97.323 Non-pressure chronic ulcer of left ankle with necrosis of muscle (principal); I87.2 Venous insufficiency (chronic) (peripheral); Z87.81 Personal history of (healed) traumatic fracture; I10 Essential (primary) hypertension; J44.9 Chronic obstructive pulmonary disease, unspecified; Z79.82 Long term (current) use of aspirin; Z79.899 Other long term (current) drug therapy ==

== ENCOUNTER 2019-10-20 00:19 | Day surgery (SDC) | payer OTHER | END 2019-10-20 23:52 | disposition home or self-care (01) | LOC: WOUND 00:19 | DX: L97.323 Non-pressure chronic ulcer of left ankle with necrosis of muscle (principal); I87.2 Venous insufficiency (chronic) (peripheral); F17.200 Nicotine dependence, unspecified, uncomplicated; I10 Essential (primary) hypertension; J44.9 Chronic obstructive pulmonary disease, unspecified; Z87.81 Personal history of (healed) traumatic fracture; Z79.82 Long term (current) use of aspirin; Z79.899 Other long term (current) drug therapy | CPT/HCPCS: Q4133 ==

== ENCOUNTER 2019-10-27 00:18 | Day surgery (SDC) | payer OTHER | END 2019-10-27 23:24 | disposition home or self-care (01) | LOC: WOUND 00:18 | DX: L97.323 Non-pressure chronic ulcer of left ankle with necrosis of muscle (principal); I87.2 Venous insufficiency (chronic) (peripheral); F17.200 Nicotine dependence, unspecified, uncomplicated; I10 Essential (primary) hypertension; J44.9 Chronic obstructive pulmonary disease, unspecified; Z79.82 Long term (current) use of aspirin | CPT/HCPCS: Q4133 ==

== ENCOUNTER 2019-11-02 08:13 | Day surgery (SDC) | payer OTHER | END 2019-11-02 22:56 | disposition home or self-care (01) | LOC: WOUND 08:13 | DX: L97.323 Non-pressure chronic ulcer of left ankle with necrosis of muscle (principal); I87.2 Venous insufficiency (chronic) (peripheral); I10 Essential (primary) hypertension; Z72.0 Tobacco use; J44.9 Chronic obstructive pulmonary disease, unspecified; Z86.718 Personal history of other venous thrombosis and embolism; Z87.81 Personal history of (healed) traumatic fracture ==

== ENCOUNTER 2019-11-10 00:23 | Day surgery (SDC) | payer OTHER | END 2019-11-10 23:21 | disposition home or self-care (01) | LOC: WOUND 00:23 | DX: L97.323 Non-pressure chronic ulcer of left ankle with necrosis of muscle (principal); I87.2 Venous insufficiency (chronic) (peripheral); F17.200 Nicotine dependence, unspecified, uncomplicated; I10 Essential (primary) hypertension; J44.9 Chronic obstructive pulmonary disease, unspecified; Z87.81 Personal history of (healed) traumatic fracture; Z79.82 Long term (current) use of aspirin; Z79.899 Other long term (current) drug therapy ==

== ENCOUNTER 2019-11-14 00:42 | Day surgery (SDC) | payer OTHER | END 2019-11-14 23:16 | disposition home or self-care (01) | LOC: WOUND 00:42 | DX: L97.323 Non-pressure chronic ulcer of left ankle with necrosis of muscle (principal); I87.2 Venous insufficiency (chronic) (peripheral); I10 Essential (primary) hypertension; Z72.0 Tobacco use; Z87.81 Personal history of (healed) traumatic fracture ==

== ENCOUNTER 2019-11-17 00:26 | Day surgery (SDC) | payer OTHER | END 2019-11-17 22:41 | disposition home or self-care (01) | LOC: WOUND 00:26 | DX: L97.323 Non-pressure chronic ulcer of left ankle with necrosis of muscle (principal); I87.2 Venous insufficiency (chronic) (peripheral); F17.200 Nicotine dependence, unspecified, uncomplicated; I10 Essential (primary) hypertension; Z87.81 Personal history of (healed) traumatic fracture; J44.9 Chronic obstructive pulmonary disease, unspecified; Z79.82 Long term (current) use of aspirin; Z79.899 Other long term (current) drug therapy ==

== ENCOUNTER 2019-11-25 01:34 | Day surgery (SDC) | payer OTHER | END 2019-11-25 22:49 | disposition home or self-care (01) | LOC: WOUND 01:34 | DX: L97.323 Non-pressure chronic ulcer of left ankle with necrosis of muscle (principal); I87.2 Venous insufficiency (chronic) (peripheral); F17.200 Nicotine dependence, unspecified, uncomplicated; Z87.81 Personal history of (healed) traumatic fracture; I10 Essential (primary) hypertension; J44.9 Chronic obstructive pulmonary disease, unspecified; Z79.82 Long term (current) use of aspirin; Z79.899 Other long term (current) drug therapy ==

== ENCOUNTER 2019-12-01 00:18 | Day surgery (SDC) | payer OTHER | END 2019-12-01 23:00 | disposition home or self-care (01) | LOC: WOUND 00:18 | DX: L97.323 Non-pressure chronic ulcer of left ankle with necrosis of muscle (principal); I87.2 Venous insufficiency (chronic) (peripheral); Z72.0 Tobacco use; Z87.81 Personal history of (healed) traumatic fracture; I10 Essential (primary) hypertension ==

== ENCOUNTER 2019-12-08 00:11 | Day surgery (SDC) | payer OTHER | END 2019-12-08 22:47 | disposition home or self-care (01) | LOC: WOUND 00:11 | DX: L97.323 Non-pressure chronic ulcer of left ankle with necrosis of muscle (principal); I87.2 Venous insufficiency (chronic) (peripheral); F17.200 Nicotine dependence, unspecified, uncomplicated; J44.9 Chronic obstructive pulmonary disease, unspecified; I10 Essential (primary) hypertension; Z87.81 Personal history of (healed) traumatic fracture; Z79.82 Long term (current) use of aspirin; Z79.899 Other long term (current) drug therapy ==

== ENCOUNTER 2020-02-02 00:22 | Day surgery (SDC) | payer OTHER | END 2020-02-02 22:49 | disposition home or self-care (01) | LOC: WOUND 00:22 | DX: L97.323 Non-pressure chronic ulcer of left ankle with necrosis of muscle (principal); I87.2 Venous insufficiency (chronic) (peripheral); F17.200 Nicotine dependence, unspecified, uncomplicated; J44.9 Chronic obstructive pulmonary disease, unspecified; I10 Essential (primary) hypertension; Z87.81 Personal history of (healed) traumatic fracture; Z79.899 Other long term (current) drug therapy; Z79.82 Long term (current) use of aspirin ==

== ENCOUNTER 2020-02-09 00:20 | Day surgery (SDC) | payer OTHER | END 2020-02-09 23:13 | disposition home or self-care (01) | LOC: WOUND 00:20 | DX: I96 Gangrene, not elsewhere classified (principal); L97.822 Non-pressure chronic ulcer of other part of left lower leg with fat layer exposed; I87.2 Venous insufficiency (chronic) (peripheral); I10 Essential (primary) hypertension; J44.9 Chronic obstructive pulmonary disease, unspecified; Z88.1 Allergy status to other antibiotic agents; Z88.2 Allergy status to sulfonamides; Z79.82 Long term (current) use of aspirin; Z79.899 Other long term (current) drug therapy; Z87.81 Personal history of (healed) traumatic fracture; Z92.3 Personal history of irradiation; Z86.718 Personal history of other venous thrombosis and embolism ==

== ENCOUNTER 2020-02-16 14:54 | Day surgery (SDC) | payer OTHER | END 2020-02-16 22:39 | disposition home or self-care (01) | LOC: WOUND 14:54 | DX: L97.323 Non-pressure chronic ulcer of left ankle with necrosis of muscle (principal); I87.2 Venous insufficiency (chronic) (peripheral); F17.200 Nicotine dependence, unspecified, uncomplicated; Z87.81 Personal history of (healed) traumatic fracture ==

== ENCOUNTER 2020-03-01 00:37 | Day surgery (SDC) | payer OTHER | END 2020-03-01 22:47 | disposition home or self-care (01) | LOC: WOUND 00:37 | DX: L97.323 Non-pressure chronic ulcer of left ankle with necrosis of muscle (principal); I87.2 Venous insufficiency (chronic) (peripheral); Z87.81 Personal history of (healed) traumatic fracture; F17.200 Nicotine dependence, unspecified, uncomplicated; Z79.899 Other long term (current) drug therapy ==

== ENCOUNTER 2020-03-09 00:29 | Day surgery (SDC) | payer OTHER | END 2020-03-09 23:07 | disposition home or self-care (01) | LOC: WOUND 00:29 | DX: I96 Gangrene, not elsewhere classified (principal); L97.322 Non-pressure chronic ulcer of left ankle with fat layer exposed; I87.2 Venous insufficiency (chronic) (peripheral); J44.9 Chronic obstructive pulmonary disease, unspecified; I10 Essential (primary) hypertension; Z87.81 Personal history of (healed) traumatic fracture; Z88.1 Allergy status to other antibiotic agents; Z88.2 Allergy status to sulfonamides; Z79.82 Long term (current) use of aspirin; Z79.899 Other long term (current) drug therapy; Z86.718 Personal history of other venous thrombosis and embolism ==

== ENCOUNTER 2020-03-15 00:49 | Day surgery (SDC) | payer OTHER | END 2020-03-15 22:55 | disposition home or self-care (01) | LOC: WOUND 00:49 | DX: L97.323 Non-pressure chronic ulcer of left ankle with necrosis of muscle (principal); I87.2 Venous insufficiency (chronic) (peripheral); F17.200 Nicotine dependence, unspecified, uncomplicated; Z87.81 Personal history of (healed) traumatic fracture ==

== ENCOUNTER 2020-03-22 00:20 | Day surgery (SDC) | payer OTHER | END 2020-03-22 22:58 | disposition home or self-care (01) | LOC: WOUND 00:20 | DX: L97.323 Non-pressure chronic ulcer of left ankle with necrosis of muscle (principal); I87.2 Venous insufficiency (chronic) (peripheral); F17.200 Nicotine dependence, unspecified, uncomplicated; Z87.81 Personal history of (healed) traumatic fracture ==

== ENCOUNTER 2020-03-29 00:47 | Day surgery (SDC) | payer OTHER | END 2020-03-29 12:00 | disposition home or self-care (01) | LOC: WOUND 00:47 | DX: I96 Gangrene, not elsewhere classified (principal); L97.822 Non-pressure chronic ulcer of other part of left lower leg with fat layer exposed; I87.2 Venous insufficiency (chronic) (peripheral); I10 Essential (primary) hypertension; J44.9 Chronic obstructive pulmonary disease, unspecified; Z92.3 Personal history of irradiation; Z86.718 Personal history of other venous thrombosis and embolism; Z87.81 Personal history of (healed) traumatic fracture; Z88.1 Allergy status to other antibiotic agents; Z88.2 Allergy status to sulfonamides; Z79.82 Long term (current) use of aspirin; Z79.899 Other long term (current) drug therapy ==

== ENCOUNTER 2020-04-05 00:09 | Day surgery (SDC) | payer OTHER | END 2020-04-05 23:19 | disposition home or self-care (01) | LOC: WOUND 00:09 | DX: I96 Gangrene, not elsewhere classified (principal); L97.822 Non-pressure chronic ulcer of other part of left lower leg with fat layer exposed; I87.2 Venous insufficiency (chronic) (peripheral); I10 Essential (primary) hypertension; J44.9 Chronic obstructive pulmonary disease, unspecified; Z87.81 Personal history of (healed) traumatic fracture; Z88.1 Allergy status to other antibiotic agents; Z88.2 Allergy status to sulfonamides; Z79.899 Other long term (current) drug therapy; Z79.82 Long term (current) use of aspirin; Z92.3 Personal history of irradiation; Z86.718 Personal history of other venous thrombosis and embolism ==

== ENCOUNTER 2020-04-12 08:39 | Day surgery (SDC) | payer OTHER | END 2020-04-12 23:37 | disposition home or self-care (01) | LOC: WOUND 08:39 | DX: I96 Gangrene, not elsewhere classified (principal); L97.822 Non-pressure chronic ulcer of other part of left lower leg with fat layer exposed; I87.2 Venous insufficiency (chronic) (peripheral); I10 Essential (primary) hypertension; J44.9 Chronic obstructive pulmonary disease, unspecified; Z87.81 Personal history of (healed) traumatic fracture; Z86.718 Personal history of other venous thrombosis and embolism; Z88.1 Allergy status to other antibiotic agents; Z88.2 Allergy status to sulfonamides; Z79.82 Long term (current) use of aspirin; Z79.899 Other long term (current) drug therapy; Z92.3 Personal history of irradiation ==

== ENCOUNTER 2020-04-26 00:20 | Day surgery (SDC) | payer MEDICARE, OTHER | END 2020-04-26 22:55 | disposition home or self-care (01) | LOC: WOUND 00:20 | DX: L97.323 Non-pressure chronic ulcer of left ankle with necrosis of muscle (principal); I87.2 Venous insufficiency (chronic) (peripheral); F17.200 Nicotine dependence, unspecified, uncomplicated; I10 Essential (primary) hypertension; Z87.81 Personal history of (healed) traumatic fracture; J44.9 Chronic obstructive pulmonary disease, unspecified; Z79.899 Other long term (current) drug therapy ==

== ENCOUNTER 2020-05-02 03:10 | Day surgery (SDC) | payer MEDICARE, OTHER | END 2020-05-02 23:32 | disposition home or self-care (01) | LOC: WOUND 03:10 | DX: L97.822 Non-pressure chronic ulcer of other part of left lower leg with fat layer exposed (principal); I87.2 Venous insufficiency (chronic) (peripheral); I10 Essential (primary) hypertension; Z88.1 Allergy status to other antibiotic agents; Z88.2 Allergy status to sulfonamides; Z79.82 Long term (current) use of aspirin; Z79.899 Other long term (current) drug therapy; Z86.718 Personal history of other venous thrombosis and embolism; Z92.3 Personal history of irradiation; Z87.81 Personal history of (healed) traumatic fracture ==

== ENCOUNTER 2020-05-10 00:19 | Day surgery (SDC) | payer MEDICARE, OTHER | END 2020-05-10 23:30 | disposition home or self-care (01) | LOC: WOUND 00:19 | DX: I96 Gangrene, not elsewhere classified (principal); L97.822 Non-pressure chronic ulcer of other part of left lower leg with fat layer exposed; I87.2 Venous insufficiency (chronic) (peripheral); I10 Essential (primary) hypertension; J44.9 Chronic obstructive pulmonary disease, unspecified; Z87.81 Personal history of (healed) traumatic fracture; Z86.718 Personal history of other venous thrombosis and embolism; Z88.1 Allergy status to other antibiotic agents; Z88.2 Allergy status to sulfonamides; Z79.82 Long term (current) use of aspirin; Z79.899 Other long term (current) drug therapy; Z92.3 Personal history of irradiation ==

== ENCOUNTER 2020-05-17 00:23 | Day surgery (SDC) | payer MEDICARE, OTHER | END 2020-05-17 23:16 | disposition home or self-care (01) | LOC: WOUND 00:23 | DX: L97.323 Non-pressure chronic ulcer of left ankle with necrosis of muscle (principal); I87.2 Venous insufficiency (chronic) (peripheral); F17.200 Nicotine dependence, unspecified, uncomplicated; Z87.81 Personal history of (healed) traumatic fracture; J44.9 Chronic obstructive pulmonary disease, unspecified; I10 Essential (primary) hypertension; Z79.899 Other long term (current) drug therapy ==

== ENCOUNTER 2020-05-22 00:14 | Day surgery (SDC) | payer MEDICARE, OTHER | END 2020-05-22 23:07 | disposition home or self-care (01) | LOC: WOUND 00:14 | DX: L97.323 Non-pressure chronic ulcer of left ankle with necrosis of muscle (principal); I87.2 Venous insufficiency (chronic) (peripheral); Z87.81 Personal history of (healed) traumatic fracture; Z79.82 Long term (current) use of aspirin; Z79.899 Other long term (current) drug therapy; Z88.1 Allergy status to other antibiotic agents; Z88.2 Allergy status to sulfonamides ==

== ENCOUNTER 2020-06-07 00:52 | Day surgery (SDC) | payer MEDICARE, OTHER | END 2020-06-07 23:21 | disposition home or self-care (01) | LOC: WOUND 00:52 | DX: L97.323 Non-pressure chronic ulcer of left ankle with necrosis of muscle (principal); I87.2 Venous insufficiency (chronic) (peripheral); Z87.81 Personal history of (healed) traumatic fracture; Z88.1 Allergy status to other antibiotic agents; Z88.2 Allergy status to sulfonamides; Z79.82 Long term (current) use of aspirin; Z79.899 Other long term (current) drug therapy ==

== ENCOUNTER 2020-06-14 00:17 | Day surgery (SDC) | payer MEDICARE, OTHER | END 2020-06-14 23:35 | disposition home or self-care (01) | LOC: WOUND 00:17 | DX: L97.322 Non-pressure chronic ulcer of left ankle with fat layer exposed (principal); I87.2 Venous insufficiency (chronic) (peripheral); J44.9 Chronic obstructive pulmonary disease, unspecified; I10 Essential (primary) hypertension; Z86.14 Personal history of Methicillin resistant Staphylococcus aureus infection; Z72.0 Tobacco use; Z86.718 Personal history of other venous thrombosis and embolism | CPT/HCPCS: A9270 ==

== ENCOUNTER 2020-06-21 00:17 | Day surgery (SDC) | payer MEDICARE, OTHER | END 2020-06-21 23:59 | disposition home or self-care (01) | LOC: WOUND 00:17 | DX: L97.822 Non-pressure chronic ulcer of other part of left lower leg with fat layer exposed (principal); I87.2 Venous insufficiency (chronic) (peripheral); J44.9 Chronic obstructive pulmonary disease, unspecified; I10 Essential (primary) hypertension; Z88.1 Allergy status to other antibiotic agents; Z88.2 Allergy status to sulfonamides; Z79.82 Long term (current) use of aspirin; Z79.899 Other long term (current) drug therapy; Z92.3 Personal history of irradiation; Z87.81 Personal history of (healed) traumatic fracture; Z86.718 Personal history of other venous thrombosis and embolism | CPT/HCPCS: A9270 ==

== ENCOUNTER 2020-06-28 01:33 | Day surgery (SDC) | payer MEDICARE, OTHER | END 2020-06-28 22:42 | disposition home or self-care (01) | LOC: WOUND 01:33 | DX: L97.323 Non-pressure chronic ulcer of left ankle with necrosis of muscle (principal); I87.2 Venous insufficiency (chronic) (peripheral); Z72.0 Tobacco use; J44.9 Chronic obstructive pulmonary disease, unspecified; I10 Essential (primary) hypertension; Z87.81 Personal history of (healed) traumatic fracture; Z79.82 Long term (current) use of aspirin; Z79.899 Other long term (current) drug therapy; Z88.1 Allergy status to other antibiotic agents; Z88.2 Allergy status to sulfonamides | CPT/HCPCS: G0463 ==

== ENCOUNTER 2021-06-24 02:59 | Day surgery (SDC) | payer OTHER | END 2021-06-24 22:45 | disposition home or self-care (01) | LOC: WOUND 02:59 | DX: L97.323 Non-pressure chronic ulcer of left ankle with necrosis of muscle (principal); L97.822 Non-pressure chronic ulcer of other part of left lower leg with fat layer exposed; I87.2 Venous insufficiency (chronic) (peripheral); J44.9 Chronic obstructive pulmonary disease, unspecified; I10 Essential (primary) hypertension; F17.200 Nicotine dependence, unspecified, uncomplicated; Z87.81 Personal history of (healed) traumatic fracture; Z86.718 Personal history of other venous thrombosis and embolism; Z86.14 Personal history of Methicillin resistant Staphylococcus aureus infection; Z88.2 Allergy status to sulfonamides; Z88.1 Allergy status to other antibiotic agents | CPT/HCPCS: A9270; G0463 ==

== ENCOUNTER 2021-06-26 00:50 | Day surgery (SDC) | payer OTHER | END 2021-06-26 23:07 | disposition home or self-care (01) | LOC: WOUND 00:50 | DX: L97.322 Non-pressure chronic ulcer of left ankle with fat layer exposed (principal); I87.2 Venous insufficiency (chronic) (peripheral); Z72.0 Tobacco use; Z87.81 Personal history of (healed) traumatic fracture ==

== ENCOUNTER 2021-07-01 03:23 | Day surgery (SDC) | payer OTHER | END 2021-07-01 23:31 | disposition home or self-care (01) | LOC: WOUND 03:23 | DX: L97.822 Non-pressure chronic ulcer of other part of left lower leg with fat layer exposed (principal); L97.323 Non-pressure chronic ulcer of left ankle with necrosis of muscle; I10 Essential (primary) hypertension; J44.9 Chronic obstructive pulmonary disease, unspecified; I87.2 Venous insufficiency (chronic) (peripheral); Z72.0 Tobacco use; Z87.81 Personal history of (healed) traumatic fracture | CPT/HCPCS: A9270 ==

== ENCOUNTER 2021-07-08 03:24 | Day surgery (SDC) | payer OTHER | END 2021-07-08 23:42 | disposition home or self-care (01) | LOC: WOUND 03:24 | DX: L97.822 Non-pressure chronic ulcer of other part of left lower leg with fat layer exposed (principal); L97.323 Non-pressure chronic ulcer of left ankle with necrosis of muscle; J44.9 Chronic obstructive pulmonary disease, unspecified; I87.2 Venous insufficiency (chronic) (peripheral); Z72.0 Tobacco use; Z87.81 Personal history of (healed) traumatic fracture; I10 Essential (primary) hypertension | CPT/HCPCS: A9270 ==

== ENCOUNTER 2021-07-15 03:13 | Day surgery (SDC) | payer OTHER | END 2021-07-15 23:28 | disposition home or self-care (01) | LOC: WOUND 03:13 | DX: L97.323 Non-pressure chronic ulcer of left ankle with necrosis of muscle (principal); L97.822 Non-pressure chronic ulcer of other part of left lower leg with fat layer exposed; I87.2 Venous insufficiency (chronic) (peripheral); J44.9 Chronic obstructive pulmonary disease, unspecified; I10 Essential (primary) hypertension; Z72.0 Tobacco use; Z87.81 Personal history of (healed) traumatic fracture; Z86.718 Personal history of other venous thrombosis and embolism; Z86.14 Personal history of Methicillin resistant Staphylococcus aureus infection | CPT/HCPCS: A9270 ==

== ENCOUNTER 2021-07-22 02:37 | Day surgery (SDC) | payer OTHER | END 2021-07-22 23:18 | disposition home or self-care (01) | LOC: WOUND 02:37 | DX: L97.322 Non-pressure chronic ulcer of left ankle with fat layer exposed (principal); I87.2 Venous insufficiency (chronic) (peripheral); Z72.0 Tobacco use; Z87.81 Personal history of (healed) traumatic fracture; I10 Essential (primary) hypertension; J44.9 Chronic obstructive pulmonary disease, unspecified | CPT/HCPCS: A9270 ==

== ENCOUNTER 2021-07-29 01:43 | Day surgery (SDC) | payer OTHER | END 2021-07-29 23:41 | disposition home or self-care (01) | LOC: WOUND 01:43 | DX: L97.323 Non-pressure chronic ulcer of left ankle with necrosis of muscle (principal); L97.822 Non-pressure chronic ulcer of other part of left lower leg with fat layer exposed; I87.2 Venous insufficiency (chronic) (peripheral); J44.9 Chronic obstructive pulmonary disease, unspecified; I10 Essential (primary) hypertension; Z72.0 Tobacco use; Z87.81 Personal history of (healed) traumatic fracture; Z86.718 Personal history of other venous thrombosis and embolism | CPT/HCPCS: A9270 ==

== ENCOUNTER 2021-08-05 03:14 | Day surgery (SDC) | payer OTHER | END 2021-08-05 23:41 | disposition home or self-care (01) | LOC: WOUND 03:14 | DX: L97.322 Non-pressure chronic ulcer of left ankle with fat layer exposed (principal); I87.2 Venous insufficiency (chronic) (peripheral); I10 Essential (primary) hypertension; J44.9 Chronic obstructive pulmonary disease, unspecified; Z72.0 Tobacco use; Z87.81 Personal history of (healed) traumatic fracture | CPT/HCPCS: A9270; Q4133 ==

== ENCOUNTER 2021-08-12 05:57 | Day surgery (SDC) | payer OTHER | END 2021-08-12 23:31 | disposition home or self-care (01) | LOC: WOUND 05:57 | DX: I87.312 Chronic venous hypertension (idiopathic) with ulcer of left lower extremity (principal); L97.822 Non-pressure chronic ulcer of other part of left lower leg with fat layer exposed; I87.2 Venous insufficiency (chronic) (peripheral); J44.9 Chronic obstructive pulmonary disease, unspecified; I10 Essential (primary) hypertension; Z72.0 Tobacco use; Z87.81 Personal history of (healed) traumatic fracture; Z86.718 Personal history of other venous thrombosis and embolism | CPT/HCPCS: A9270; Q4133 ==

== ENCOUNTER 2021-08-19 02:30 | Day surgery (SDC) | payer OTHER | END 2021-08-19 22:47 | disposition home or self-care (01) | LOC: WOUND 02:30 | DX: I87.312 Chronic venous hypertension (idiopathic) with ulcer of left lower extremity (principal); L97.822 Non-pressure chronic ulcer of other part of left lower leg with fat layer exposed; J44.9 Chronic obstructive pulmonary disease, unspecified; I10 Essential (primary) hypertension; Z86.718 Personal history of other venous thrombosis and embolism; Z87.81 Personal history of (healed) traumatic fracture; Z86.14 Personal history of Methicillin resistant Staphylococcus aureus infection; Z72.0 Tobacco use | CPT/HCPCS: A9270; Q4133 ==

== ENCOUNTER 2021-08-26 01:35 | Day surgery (SDC) | payer OTHER | END 2021-08-26 23:41 | disposition home or self-care (01) | LOC: WOUND 01:35 | DX: I87.312 Chronic venous hypertension (idiopathic) with ulcer of left lower extremity (principal); L97.822 Non-pressure chronic ulcer of other part of left lower leg with fat layer exposed; I87.2 Venous insufficiency (chronic) (peripheral); J44.9 Chronic obstructive pulmonary disease, unspecified; I10 Essential (primary) hypertension; Z72.0 Tobacco use; Z87.81 Personal history of (healed) traumatic fracture; Z86.718 Personal history of other venous thrombosis and embolism | CPT/HCPCS: Q4133 ==

== ENCOUNTER 2021-09-02 02:31 | Day surgery (SDC) | payer OTHER | END 2021-09-02 23:34 | disposition home or self-care (01) | LOC: WOUND 02:31 | DX: I87.312 Chronic venous hypertension (idiopathic) with ulcer of left lower extremity (principal); L97.822 Non-pressure chronic ulcer of other part of left lower leg with fat layer exposed; I87.2 Venous insufficiency (chronic) (peripheral); I10 Essential (primary) hypertension; J44.9 Chronic obstructive pulmonary disease, unspecified; Z72.0 Tobacco use; Z87.81 Personal history of (healed) traumatic fracture | CPT/HCPCS: A9270; Q4133 ==

== ENCOUNTER 2021-09-09 01:24 | Day surgery (SDC) | payer OTHER | END 2021-09-09 23:58 | disposition home or self-care (01) | LOC: WOUND 01:24 | DX: I87.312 Chronic venous hypertension (idiopathic) with ulcer of left lower extremity (principal); L97.822 Non-pressure chronic ulcer of other part of left lower leg with fat layer exposed; I87.2 Venous insufficiency (chronic) (peripheral); J44.9 Chronic obstructive pulmonary disease, unspecified; I10 Essential (primary) hypertension; Z87.81 Personal history of (healed) traumatic fracture; Z86.718 Personal history of other venous thrombosis and embolism; Z72.0 Tobacco use | CPT/HCPCS: A9270; Q4133 ==

== ENCOUNTER 2021-09-16 08:00 | Day surgery (SDC) | payer OTHER | END 2021-09-16 23:59 | disposition home or self-care (01) | LOC: WOUND 08:00 | DX: I87.312 Chronic venous hypertension (idiopathic) with ulcer of left lower extremity (principal); L97.822 Non-pressure chronic ulcer of other part of left lower leg with fat layer exposed; I87.2 Venous insufficiency (chronic) (peripheral); J44.9 Chronic obstructive pulmonary disease, unspecified; I10 Essential (primary) hypertension; Z72.0 Tobacco use; Z87.81 Personal history of (healed) traumatic fracture; Z86.718 Personal history of other venous thrombosis and embolism | CPT/HCPCS: Q4133 ==

== ENCOUNTER 2021-09-23 02:04 | Day surgery (SDC) | payer OTHER | END 2021-09-23 22:54 | disposition home or self-care (01) | LOC: WOUND 02:04 | DX: I87.312 Chronic venous hypertension (idiopathic) with ulcer of left lower extremity (principal); L97.822 Non-pressure chronic ulcer of other part of left lower leg with fat layer exposed; I87.2 Venous insufficiency (chronic) (peripheral); Z87.81 Personal history of (healed) traumatic fracture; Z72.0 Tobacco use; J44.9 Chronic obstructive pulmonary disease, unspecified; I10 Essential (primary) hypertension | CPT/HCPCS: Q4133 ==

== ENCOUNTER 2021-09-30 01:17 | Day surgery (SDC) | payer OTHER | END 2021-09-30 23:09 | disposition home or self-care (01) | LOC: WOUND 01:17 | DX: I87.312 Chronic venous hypertension (idiopathic) with ulcer of left lower extremity (principal); L97.822 Non-pressure chronic ulcer of other part of left lower leg with fat layer exposed; J44.9 Chronic obstructive pulmonary disease, unspecified; I87.2 Venous insufficiency (chronic) (peripheral); I10 Essential (primary) hypertension; Z86.718 Personal history of other venous thrombosis and embolism; Z72.0 Tobacco use; Z87.81 Personal history of (healed) traumatic fracture | CPT/HCPCS: A9270; Q4133 ==

== ENCOUNTER 2021-10-14 01:18 | Day surgery (SDC) | payer OTHER | END 2021-10-14 23:30 | disposition home or self-care (01) | LOC: WOUND 01:18 | DX: I87.312 Chronic venous hypertension (idiopathic) with ulcer of left lower extremity (principal); L97.822 Non-pressure chronic ulcer of other part of left lower leg with fat layer exposed; I87.2 Venous insufficiency (chronic) (peripheral); I10 Essential (primary) hypertension; J44.9 Chronic obstructive pulmonary disease, unspecified; Z87.81 Personal history of (healed) traumatic fracture; Z72.0 Tobacco use; Z86.718 Personal history of other venous thrombosis and embolism | CPT/HCPCS: A9270; Q4133 ==

== ENCOUNTER 2021-10-15 14:23 | Day surgery (SDC) | payer OTHER | END 2021-10-15 23:36 | disposition home or self-care (01) | LOC: WOUND 14:23 | DX: I87.312 Chronic venous hypertension (idiopathic) with ulcer of left lower extremity (principal); I87.2 Venous insufficiency (chronic) (peripheral); Z72.0 Tobacco use; Z87.81 Personal history of (healed) traumatic fracture ==

== ENCOUNTER 2021-10-21 01:25 | Day surgery (SDC) | payer OTHER | END 2021-10-21 22:49 | disposition home or self-care (01) | LOC: WOUND 01:25 | DX: I87.312 Chronic venous hypertension (idiopathic) with ulcer of left lower extremity (principal); L97.822 Non-pressure chronic ulcer of other part of left lower leg with fat layer exposed; I87.2 Venous insufficiency (chronic) (peripheral); J44.9 Chronic obstructive pulmonary disease, unspecified; I10 Essential (primary) hypertension; Z72.0 Tobacco use; Z87.81 Personal history of (healed) traumatic fracture | CPT/HCPCS: 99406; A9270 ==

== ENCOUNTER 2021-10-28 03:19 | Day surgery (SDC) | payer OTHER | END 2021-10-28 23:33 | disposition home or self-care (01) | LOC: WOUND 03:19 | DX: I87.312 Chronic venous hypertension (idiopathic) with ulcer of left lower extremity (principal); L97.822 Non-pressure chronic ulcer of other part of left lower leg with fat layer exposed; I87.2 Venous insufficiency (chronic) (peripheral); J44.9 Chronic obstructive pulmonary disease, unspecified; I10 Essential (primary) hypertension; Z72.0 Tobacco use; Z87.81 Personal history of (healed) traumatic fracture | CPT/HCPCS: 99406 ==

== ENCOUNTER 2021-11-05 04:30 | Day surgery (SDC) | payer OTHER | END 2021-11-05 23:18 | disposition home or self-care (01) | LOC: WOUND 04:30 | DX: I87.312 Chronic venous hypertension (idiopathic) with ulcer of left lower extremity (principal); L97.329 Non-pressure chronic ulcer of left ankle with unspecified severity; I87.2 Venous insufficiency (chronic) (peripheral); Z87.81 Personal history of (healed) traumatic fracture; Z72.0 Tobacco use; J44.9 Chronic obstructive pulmonary disease, unspecified; I10 Essential (primary) hypertension; Z86.718 Personal history of other venous thrombosis and embolism; Z86.14 Personal history of Methicillin resistant Staphylococcus aureus infection ==

== ENCOUNTER 2021-11-11 01:22 | Day surgery (SDC) | payer OTHER | END 2021-11-11 23:31 | disposition home or self-care (01) | LOC: WOUND 01:22 | DX: I87.312 Chronic venous hypertension (idiopathic) with ulcer of left lower extremity (principal); L97.822 Non-pressure chronic ulcer of other part of left lower leg with fat layer exposed; I87.2 Venous insufficiency (chronic) (peripheral); Z72.0 Tobacco use; Z87.81 Personal history of (healed) traumatic fracture; J44.9 Chronic obstructive pulmonary disease, unspecified; I10 Essential (primary) hypertension | CPT/HCPCS: A9270; G0463 ==

== ENCOUNTER → 2023-05-27 | Outpatient (CLI) | payer OTHER ==
[2023-05-27 19:45] LABS: Bun/Creatinine Ratio 16.4 (12.0-20.0); Calcium, Blood 9.3 mg/dL (8.5-10.1); Creatinine, Blood 0.67 mg/dL (0.40-1.00); Potassium, Blood 4.3 mmol/L (3.5-5.5)
== END | disposition home or self-care (01) ==
LOC: LAB 18:17 → LAB SHORT 18:17
PROVIDERS: Hospitalist
DX: I10 Essential (primary) hypertension (principal)
CPT/HCPCS: 80048

== ENCOUNTER 2023-07-15 01:41 | Day surgery (SDC) | payer OTHER ==
[2023-07-15] MEDS ORDERED: Lidocaine HCl 4% Cream 5 GM ONE (13:04)
== END 2023-07-15 23:39 | disposition home or self-care (01) ==
LOC: WOUND 01:41
DX: I87.312 Chronic venous hypertension (idiopathic) with ulcer of left lower extremity (principal); I87.2 Venous insufficiency (chronic) (peripheral); I73.9 Peripheral vascular disease, unspecified; Z72.0 Tobacco use; I10 Essential (primary) hypertension; Z86.718 Personal history of other venous thrombosis and embolism; J44.9 Chronic obstructive pulmonary disease, unspecified
CPT/HCPCS: A9270; G0463

== ENCOUNTER 2023-07-22 00:07 | Day surgery (SDC) | payer OTHER ==
[2023-07-22] MEDS ORDERED: Lidocaine HCl 4% Cream 5 GM ONE (08:42)
== END 2023-07-22 22:45 | disposition home or self-care (01) ==
LOC: WOUND 00:07
DX: S91.002D Unspecified open wound, left ankle, subsequent encounter (principal); J44.9 Chronic obstructive pulmonary disease, unspecified; I10 Essential (primary) hypertension; I87.312 Chronic venous hypertension (idiopathic) with ulcer of left lower extremity; I87.2 Venous insufficiency (chronic) (peripheral); I73.9 Peripheral vascular disease, unspecified; Z72.0 Tobacco use; X58.XXXD Exposure to other specified factors, subsequent encounter; R93.6 Abnormal findings on diagnostic imaging of limbs
CPT/HCPCS: 93922; A9270

== ENCOUNTER 2023-07-30 03:16 | Day surgery (SDC) | payer OTHER ==
[2023-07-30] MEDS ORDERED: Lidocaine HCl 4% Cream 5 GM ONE (11:14)
== END 2023-07-30 22:48 | disposition home or self-care (01) ==
LOC: WOUND 03:16
DX: I70.248 Atherosclerosis of native arteries of left leg with ulceration of other part of lower leg (principal); L97.322 Non-pressure chronic ulcer of left ankle with fat layer exposed; I87.2 Venous insufficiency (chronic) (peripheral); Z72.0 Tobacco use; I10 Essential (primary) hypertension; J44.9 Chronic obstructive pulmonary disease, unspecified
CPT/HCPCS: A6213; A9270; G0463

== ENCOUNTER 2023-09-16 02:25 | Day surgery (SDC) | payer OTHER | END 2023-09-16 23:35 | disposition home or self-care (01) | LOC: WOUND 02:25 | DX: I70.243 Atherosclerosis of native arteries of left leg with ulceration of ankle (principal); L97.322 Non-pressure chronic ulcer of left ankle with fat layer exposed; I87.2 Venous insufficiency (chronic) (peripheral); Z72.0 Tobacco use; I10 Essential (primary) hypertension; J44.9 Chronic obstructive pulmonary disease, unspecified; Z86.718 Personal history of other venous thrombosis and embolism ==

== ENCOUNTER → 2024-09-21 | Outpatient (CLI) | payer OTHER | END | disposition home or self-care (01) | LOC: LAB SHORT 10:45 → LAB 10:45 | DX: N30.01 Acute cystitis with hematuria (principal) | CPT/HCPCS: 87077; 87086; 87186 ==

== ENCOUNTER → 2024-09-21 | Outpatient (CLI) | payer OTHER ==
[2024-09-21 16:53] LABS: Anion Gap 7 mmol/L (3-11); Blood Urea Nitrogen 13 mg/dL (8-24); Bun/Creatinine Ratio 22.1 (12.0-20.0); CHOL/HDL RATIO 1.8; CO2, Blood 28 mmol/L (21-32); Calcium, Blood 9.7 mg/dL (8.5-10.1); Chloride, Blood 107 mmol/L (98-108); Cholesterol 142 mg/dL (50-200); Creatinine, Blood 0.59 mg/dL (0.40-1.00); Glomerular Filtration Rate 98 (60-); Glucose, Blood 121 mg/dL (70-99); HDL Cholesterol 78 mg/dL (>39); LDL/HDL RATIO 0.6; Low Density Lipoprotein Chol 47 mg/dL (0-110); Sodium, Blood 138 mmol/L (136-145); Triglycerides 85 mg/dL (30-160); Very Low Density Lipoprot Chol 17 mg/dL (6-32)
== END ==
LOC: LAB 13:59 → LAB SHORT 13:59
PROVIDERS: Hospitalist
DX: T61.781A Other shellfish poisoning, accidental (unintentional), initial encounter (principal); E78.00 Pure hypercholesterolemia, unspecified; I10 Essential (primary) hypertension
CPT/HCPCS: 80048; 80061; 86003

== ENCOUNTER → 2024-12-07 | Outpatient (CLI) | payer OTHER | LOC: LAB 15:09 → LAB SHORT 15:09 | DX: N39.0 Urinary tract infection, site not specified (principal) | CPT/HCPCS: 87086 ==

== ENCOUNTER → 2025-01-23 | Outpatient (CLI) | payer OTHER | LOC: LAB 11:35 → LAB SHORT 11:35 | DX: N30.00 Acute cystitis without hematuria (principal) | CPT/HCPCS: 87077; 87086; 87186 ==

== ENCOUNTER 2025-04-14 00:27 | Day surgery (SDC) | payer OTHER ==
[2025-04-14] MEDS ORDERED: Lidocaine HCl 4% Cream 5 GM ONE (13:25)
== END 2025-04-14 23:00 | disposition home or self-care (01) ==
LOC: WOUND 00:27
DX: S91.002A Unspecified open wound, left ankle, initial encounter (principal); X58.XXXA Exposure to other specified factors, initial encounter; I10 Essential (primary) hypertension; I73.9 Peripheral vascular disease, unspecified; I87.2 Venous insufficiency (chronic) (peripheral); J44.9 Chronic obstructive pulmonary disease, unspecified; F17.210 Nicotine dependence, cigarettes, uncomplicated; Z88.2 Allergy status to sulfonamides; Z88.8 Allergy status to other drugs, medicaments and biological substances
CPT/HCPCS: A6213; A9270; G0463

== ENCOUNTER 2025-04-20 00:49 | Day surgery (SDC) | payer OTHER ==
[2025-04-20] MEDS ORDERED: Lidocaine HCl 4% Cream 5 GM ONE (12:15)
== END 2025-04-20 23:00 | disposition home or self-care (01) ==
LOC: WOUND 00:49
DX: S91.002A Unspecified open wound, left ankle, initial encounter (principal); I73.9 Peripheral vascular disease, unspecified; J44.9 Chronic obstructive pulmonary disease, unspecified; I10 Essential (primary) hypertension
CPT/HCPCS: A6213; A9270

== ENCOUNTER 2025-04-27 00:31 | Day surgery (SDC) | payer OTHER ==
[2025-04-27] MEDS ORDERED: Lidocaine HCl 4% Cream 5 GM ONE (12:53)
== END 2025-04-27 23:00 | disposition home or self-care (01) ==
LOC: WOUND 00:31
DX: S91.002A Unspecified open wound, left ankle, initial encounter (principal); I73.9 Peripheral vascular disease, unspecified; J44.9 Chronic obstructive pulmonary disease, unspecified; I10 Essential (primary) hypertension
CPT/HCPCS: A6213; A9270

== ENCOUNTER 2025-05-11 02:11 | Day surgery (SDC) | payer OTHER ==
[2025-05-11] MEDS ORDERED: Lidocaine HCl 4% Cream 5 GM ONE (13:01)
== END 2025-05-11 23:00 | disposition home or self-care (01) ==
LOC: WOUND 02:11
DX: L97.325 Non-pressure chronic ulcer of left ankle with muscle involvement without evidence of necrosis (principal); I87.2 Venous insufficiency (chronic) (peripheral); I73.9 Peripheral vascular disease, unspecified; Z72.0 Tobacco use
CPT/HCPCS: A9270

== ENCOUNTER 2025-05-18 04:23 | Day surgery (SDC) | payer OTHER ==
[2025-05-18] MEDS ORDERED: Lidocaine HCl 4% Cream 5 GM ONE (12:49)
== END 2025-05-18 23:00 | disposition home or self-care (01) ==
LOC: WOUND 04:23 → EDSTATUS 09:40 → WOUND 09:41
DX: L97.322 Non-pressure chronic ulcer of left ankle with fat layer exposed (principal); I87.2 Venous insufficiency (chronic) (peripheral); I73.9 Peripheral vascular disease, unspecified; I10 Essential (primary) hypertension; J44.9 Chronic obstructive pulmonary disease, unspecified; Z72.0 Tobacco use; Z86.718 Personal history of other venous thrombosis and embolism
CPT/HCPCS: A9270

== ENCOUNTER 2025-06-07 08:26 | Day surgery (SDC) | payer OTHER ==
[2025-06-07] MEDS ORDERED: Lidocaine HCl 4% Cream 5 GM ONE (14:37)
== END 2025-06-07 23:00 | disposition home or self-care (01) ==
LOC: WOUND 08:26
DX: L97.322 Non-pressure chronic ulcer of left ankle with fat layer exposed (principal); I87.2 Venous insufficiency (chronic) (peripheral); I73.9 Peripheral vascular disease, unspecified; I10 Essential (primary) hypertension; J44.9 Chronic obstructive pulmonary disease, unspecified; Z72.0 Tobacco use; Z79.82 Long term (current) use of aspirin; Z79.899 Other long term (current) drug therapy; Z87.81 Personal history of (healed) traumatic fracture; Z98.890 Other specified postprocedural states
CPT/HCPCS: A9270